=== PATIENT | male | born 1960 | race Caucasian/White ===

== ENCOUNTER 2020-07-21 08:01 | Outpatient (REF) | payer BC, SELFPAY ==
[2020-07-21 09:40] LABS: MANUAL DIFF FLAG NO
[2020-07-21 09:45] LABS: Basophils Percent Auto 0.8 % (0-2); Eosinophils Absolute Auto 0.1 X10*3/uL (0.0-0.4); Eosinophils Percent Auto 2.3 % (0-4); Hemoglobin 15.6 g/dl (14.0-18.0); Imm Gran Abs Auto 0.01 X10*3/uL (0.00-0.03); Imm Gran Pct Auto 0.3 % (0.0-0.4); Lymphocytes Absolute Auto 1.5 X10*3/uL (1.2-4.9); Lymphocytes Percent Auto 36.7 % (20-40); Mean Corpuscular HGB Conc 34.7 g/dl (31.0-36.0); Mean Corpuscular Hemoglobin 31.1 pg (27.0-33.0); Mean Corpuscular Volume 89.8 fL (80-98); Mean Platelet Volume 9.5 fL (9.4-12.4); Monocytes Absolute Auto 0.3 X10*3/uL (0.1-1.2); Monocytes Percent Auto 8.3 % (2-11); Neutrophils Absolute Auto 2.1 X10*3/uL (2.0-8.3); Neutrophils Percent Auto 51.6 % (45-73); Platelet Count 193 X10*3/uL (160-400); Red Blood Count 5.01 X10*6/uL (4.60-5.80)
[2020-07-21 10:06] LABS: Glucose Urine UA NEG (NEG); Leukocyte Esterase Urine NEG (NEG); Nitrite Urine NEG (NEG); Specific Gravity - Urine 1.025 (1.005-1.025); Urine Blood 1+ (NEG); Urine Ketones NEG (NEG); Urine Protein NEG (NEG-TRACE)
[2020-07-21 10:07] LABS: Appearance Urine CLEAR; Color Urine YELLOW
[2020-07-21 10:13] LABS: RBC Urine 0-2 /HPF (0); WBC Urine 0 /HPF (0-4)
[2020-07-21 10:21] LABS: Alanine Aminotransferase 17 U/L (0-40); Albumin Level 4.3 g/dL (3.5-5.0); Alkaline Phosphatase 59 U/L (39-117); Anion Gap 12 (12-20); Aspartate Amino Transferase 16 U/L (5-37); Bilirubin Total 1.7 mg/dL (0.0-1.0); Blood Urea Nitrogen 16 mg/dL (9-16); Calcium 8.7 mg/dL (8.4-10.2); Carbon Dioxide 28 mmol/L (22-29); Chloride 104 mmol/L (96-108); Cholesterol 197 mg/dL; Estimated Glomerular Filt Rate > 60; Glucose Random 95 mg/dL (60-115); HDL Cholesterol 60 mg/dL; LDL Cholesterol Calculated 121 mg/dl; Potassium 4.2 mmol/l (3.3-5.1); Sodium 140 mmol/L (135-145); Total Protein 6.8 g/dL (6.5-8.0); Triglycerides 84 mg/dL
[2020-07-21 10:45] LABS: Thyroid Stimulating Hormone 1.76 mIU/mL (0.32-4.0)
[2020-07-21 10:49] LABS: Folate 18.6 ng/mL (> or = 4.0); Vitamin B12 830 pg/mL (200-900)
== END 2020-07-21 08:02 | disposition home or self-care (01) ==
LOC: HO.LAB 08:01
PROVIDERS: PCP Internal Medicine; Visit Provider Internal Medicine
DX: R73.02 Impaired glucose tolerance (oral) (principal); E78.00 Pure hypercholesterolemia, unspecified; E80.6 Other disorders of bilirubin metabolism
CPT/HCPCS: 36415; 80053; 80061; 81001; 82607; 82746; 84443; 85025

== ENCOUNTER 2020-10-19 06:59 | Outpatient (REF) | payer BC, SELFPAY ==
[2020-10-19 07:27] LABS: Glucose Urine UA NEG (NEG); Leukocyte Esterase Urine NEG (NEG); Nitrite Urine NEG (NEG); Specific Gravity - Urine 1.025 (1.005-1.025); Urine Blood NEG (NEG); Urine Ketones NEG (NEG); Urine Protein NEG (NEG-TRACE)
[2020-10-19 07:36] LABS: Appearance Urine CLEAR; Color Urine YELLOW
[2020-10-19 07:41] LABS: RBC Urine 0 /HPF (0); WBC Urine 0 /HPF (0-4)
== END 2020-10-19 07:00 | disposition home or self-care (01) ==
LOC: HO.LAB 06:59
PROVIDERS: Visit Provider Internal Medicine
DX: R73.02 Impaired glucose tolerance (oral) (principal); R82.90 Unspecified abnormal findings in urine
CPT/HCPCS: 81001

== ENCOUNTER 2020-11-22 07:29 | Day surgery (SDC) | payer BC, SELFPAY ==
[2020-11-16 14:35] VITALS: BMI 22.4
--- NOTE | 2020-11-20 14:55 | HO.ANESPROP2 ---
Documented by User: Kayy Schmidt 11/20/20 14:56 HPI - Anesthesia Eval Consult details Narrative: 60yo M for Colonoscopy PMFSH Active Problems Active Problems: All Active Problems (Updated 11/16/20 @ 14:31 by Estefania Edwards) Annual physical exam (Acute) Colonoscopy refused (Acute) Positive colorectal cancer screening using Cologuard test (Acute) Foul smelling urine (Acute) Lateral epicondylitis of right elbow (Acute) Impaired glucose tolerance (Acute) Hyperbilirubinemia (Acute) Anxiety (Acute) Past Medical History Medical History Anxiety Arthritis Heartburn History of palpitations Hyperbilirubinemia Impaired glucose tolerance Lateral epicondylitis of right elbow Rotator cuff tear arthropathy of right shoulder Family History Family History Father Hypertension Mother Stroke TIA (transient ischemic attack) Paternal Grandmother Stomach cancer Surgical History Surgical History History of removal of cyst History of tonsillectomy Hx of colonoscopy Social History Social History Alcohol intake: current Alcohol intake frequency: a few times a week Alcohol type: beer Smoking Status: Never smoker Use of substances other than those prescribed or required for medical reasons: No Have you been hit, kicked, punched, or otherwise hurt by someone within the past year? If so, by whom?: No Advance Directives: No Advance Directives Information Provided: No Advance Directives on File: No Meds Allergies Allergy/AdvReac Type Severity Reaction Status Date / Time Cortisone Allergy Unknown Swelling Verified 11/16/20 14:28 cyclobenzaprine Allergy Unknown unknown Verified 11/16/20 14:28 [From Flexeril] Home Medications Medication Instructions Recorded Confirmed Last Taken Type diphenhydramine HCl 25 mg tablet 25 mg PO BEDTIME PRN 07/10/20 11/16/20 Unknown History ibuprofen 200 mg tablet 200 mg PO Q6H PRN 07/10/20 07/10/20 Unknown History multivitamin 1 tab PO DAILY 07/10/20 07/10/20 Unknown History melatonin 5 - 10 mg PO BEDTIME 11/16/20 11/16/20 Unknown History Exam Exam Date and Time: November 20, 2020 1455 Height,Weight and Vital Signs: Height 6 ft 1 in Weight 77.111 kg Assessment and Plan Assessment Anesthesia Assessment: Chart Reviewed Documented by User: Ni Anthony 11/22/20 08:18 [facility] Past Medical History Medical History Anxiety Arthritis Heartburn History of palpitations Hyperbilirubinemia Impaired glucose tolerance Lateral epicondylitis of right elbow Rotator cuff tear arthropathy of right shoulder Family History Family History Father Hypertension Mother Stroke TIA (transient ischemic attack) Paternal Grandmother Stomach cancer Family history of problems with anesthesia: No Surgical History Surgical History History of removal of cyst History of tonsillectomy Hx of colonoscopy History of Problems with Anesthesia: No Social History Social History Alcohol intake: current Alcohol intake frequency: a few times a week Alcohol type: beer Smoking Status: Never smoker Use of substances other than those prescribed or required for medical reasons: No Have you been hit, kicked, punched, or otherwise hurt by someone within the past year? If so, by whom?: No Advance Directives: No Advance Directives Information Provided: No Advance Directives on File: No Meds Allergies Allergy/AdvReac Type Severity Reaction Status Date / Time Cortisone Allergy Unknown Swelling Verified 11/16/20 14:28 cyclobenzaprine Allergy Unknown unknown Verified 11/16/20 14:28 [From Flexeril] Home Medications Medication Instructions Recorded Confirmed Last Taken Type diphenhydramine HCl 25 mg tablet 25 mg PO BEDTIME PRN 07/10/20 11/16/20 Unknown History ibuprofen 200 mg tablet 200 mg PO Q6H PRN 07/10/20 07/10/20 Unknown History multivitamin 1 tab PO DAILY 07/10/20 07/10/20 Unknown History melatonin 5 - 10 mg PO BEDTIME 11/16/20 11/16/20 Unknown History Exam Height,Weight and Vital Signs: Vital Signs Temp Pulse Resp BP Pulse Ox 11/22/20 07:51 98.2 F 98 18 122/87 98 Airway Mallampati Class: II TM Dist: >3cm Neck ROM: Full Heart: RRR Lungs: CTAB Assessment and Plan Assessment Anesthesia Assessment: Anesthesia Plan Discussed and Chart Reviewed Final Anesthetic Review NPO: Yes ASA Class: II Final Preanesthetic Review: No Changes in Pt Med Stat, Meds/Allgs Chart Reviewed, Consent Obtained/Reviewed and Anes Risks/Benef Reviewed Patient Risk: Low Procedure Risk: Low Assessment/Block/Sedation in SS: Assess/Block/Sedation-SS Anesthetic Plan Anesthetic Plan: MAC: Disposition: Standard PACU
[2020-11-22 07:51] VITALS: BP 122/87; PULSE 98; RESP 18; TEMP 36.8; O2SAT 98
[2020-11-22] MEDS: Lactated Ringers 1,000 ML 100 ML IVCONT (08:18)
[2020-11-22 09:45] VITALS: BP 92/58; PULSE 87; RESP 12; TEMP 36.3; O2SAT 95
--- NOTE | 2020-11-22 09:46 | PM.OP ---
Brief Operative Note Date of Service: 11/22/20 Pre-op diagnosis: + Cologuard Post-op diagnosis: other (Colon polyps, Int/Ext Hemorrhoids, Diverticulosis) Procedure: Colonoscopy to the cecum and TI with Snare polypectomy, and biopsy and removal of polyps Surgeon: Salas Frederick Anesthesia: MAC Estimated blood loss (mL): 4.0 Pathology: other (A. Ascending colon polyps B. Proximal transverse colon polyp) Condition: stable Disposition: PACU
[2020-11-22 10:00] VITALS: BP 119/77; PULSE 71; RESP 16; TEMP 36.3; O2SAT 99
--- NOTE | 2020-11-22 10:25 | OP_ITS ---
SURGEON: Salas Frederick MD INDICATIONS: The patient presents for evaluation of a positive Cologuard test. Full consent has been obtained from him for this, including risks of bleeding and perforation. PREOPERATIVE DIAGNOSIS: Positive Cologuard test. POSTOPERATIVE DIAGNOSIS: PROCEDURE PERFORMED: ESTIMATED BLOOD LOSS: COMPLICATIONS: ANESTHESIA: Monitored anesthesia care. ASSISTANTS: SPECIMENS: POSTOPERATIVE DIAGNOSES: Positive Cologuard test, small colon polyps, diverticulosis and internal hemorrhoids. DESCRIPTION OF PROCEDURE: The patient was placed in the left lateral decubitus position. The digital rectal exam revealed some small external hemorrhoids. The Olympus video pediatric colonoscope was entered into the rectum and advanced easily to the cecum. Once in the cecum, I did identify normal-appearing cecal pouch with appendiceal orifice and a normal-appearing ileocecal valve. The terminal ileum was cannulated and appeared normal. The scope was withdrawn back in the colon. The entire cecum and ileocecal valve appeared normal. The scope was slowly withdrawn assessing all mucosal surfaces carefully. Preparation was excellent. In the ascending colon, were 2 flat approximately 3 or 4 mm probable adenomatous polyps, which were both biopsied and completely removed with cold biopsy forceps. In the proximal transverse colon, was a flat, but raised approximately 6 to 8 mm polyp, which was snared and recovered by suction. The polypectomy site appeared clean, without any sign of residual polyp nor bleeding. I did not visualize any other polyps, colitis, nor angiodysplasia. There was a mild amount of sigmoid diverticulosis. In the rectum, scope was retroflexed visualizing small internal hemorrhoids, but no other pathology. The rectal mucosa appeared normal. The scope was straightened out and withdrawn from the patient. He tolerated the procedure well and was returned to the recovery area in stable condition. IMPRESSION: 1. Small colon polyps, status post snare polypectomy, and biopsy and removal. 2. Diverticulosis. 3. Internal and external hemorrhoids. PLAN: The results of biopsy will be checked. If they are adenomas, I would recommend a followup colonoscopy in 5 years. If they are all happened to be hyperplastic, I would recommend a followup colonoscopy in 10 years. He was advised not to use any aspirin and NSAIDs for 1 week. This has been discussed with his . PROCEDURES PERFORMED: Colonoscopy to the cecum and terminal ileum with biopsy and removal of polyps, and snare polypectomy. MD RIK Mancini/JEAN MARIE / [id number]
== END 2020-11-22 10:33 | disposition home or self-care (01) ==
PROVIDERS: PCP Internal Medicine; Visit Provider Internal Medicine
PROC: 0DJD8ZZ Inspection of Lower Intestinal Tract, Via Natural or Artificial Opening Endoscopic (ICD-10-PCS; CPT 45378; principal; 2020-11-22 08:30)
DX: R19.5 Other fecal abnormalities (principal); D12.2 Benign neoplasm of ascending colon; D12.3 Benign neoplasm of transverse colon; K57.30 Diverticulosis of large intestine without perforation or abscess without bleeding; K64.8 Other hemorrhoids; K64.4 Residual hemorrhoidal skin tags
CPT/HCPCS: 45385; 45380; 88305

== ENCOUNTER 2021-08-02 08:15 | Outpatient (REF) | payer BC, SELFPAY ==
[2021-08-02 09:25] LABS: Basophils Percent Auto 0.5 % (0-2); Eosinophils Absolute Auto 0.1 X10*3/uL (0.0-0.4); Eosinophils Percent Auto 1.1 % (0-4); Hematocrit 45.4 % (42.0-52.0); Hemoglobin 15.5 g/dl (14.0-18.0); Lymphocytes Absolute Auto 1.4 X10*3/uL (1.2-4.9); Lymphocytes Percent Auto 31.6 % (20-40); MANUAL DIFF FLAG NO; Mean Corpuscular HGB Conc 34.1 g/dl (31.0-36.0); Mean Corpuscular Hemoglobin 30.5 pg (27.0-33.0); Mean Corpuscular Volume 89.4 fL (80.0-98.0); Mean Platelet Volume 9.4 fL (9.4-12.4); Monocytes Absolute Auto 0.4 X10*3/uL (0.1-1.2); Neutrophils Absolute Auto 2.6 x10*3/uL (2.0-8.3); Neutrophils Percent Auto 58.8 % (45-73); Platelet Count 167 X10*3/uL (160-400); Red Blood Count 5.08 X10*6/uL (4.60-5.80); Red Cell Distribution Width 12.1 % (11.0-16.0); White Blood Count 4.4 X10*3/uL (4.8-10.8)
[2021-08-02 10:09] LABS: Alanine Aminotransferase 18 U/L (0-40); Albumin Level 4.2 g/dL (3.5-5.0); Alkaline Phosphatase 61 U/L (39-117); Anion Gap 8 (12-20); Aspartate Amino Transferase 16 U/L (5-37); Bilirubin Total 1.8 mg/dL (0.0-1.0); Blood Urea Nitrogen 15 mg/dL (9-16); Calcium 9.4 mg/dL (8.4-10.2); Carbon Dioxide 31 mmol/L (22-29); Chloride 102 mmol/L (96-108); Cholesterol 194 mg/dL; Estimated Glomerular Filt Rate > 60; Glucose Random 100 mg/dL (60-115); HDL Cholesterol 59 mg/dL; LDL Cholesterol Calculated 122 mg/dl; Potassium 4.6 mmol/L (3.3-5.1); Sodium 136 mmol/L (135-145); Total Protein 6.8 g/dL (6.5-8.0); Triglycerides 69 mg/dL
[2021-08-02 10:17] LABS: Free T4 (Free Thyroxine) 0.94 ng/dL (0.71-1.85); Prostate Specific Antigen Scr 0.29 ng/mL (<0.05-4.0); Thyroid Stimulating Hormone 1.19 uIU/mL (0.32-4.0)
[2021-08-02 10:54] LABS: Folate 18.9 ng/mL (> or = 4.0); Vitamin B12 879 pg/mL (200-900)
== END 2021-08-02 08:16 | disposition home or self-care (01) ==
LOC: HO.LAB 08:15
PROVIDERS: PCP Internal Medicine; Visit Provider Internal Medicine
DX: Z12.5 Encounter for screening for malignant neoplasm of prostate (principal); D12.6 Benign neoplasm of colon, unspecified; E78.00 Pure hypercholesterolemia, unspecified
CPT/HCPCS: 36415; 80053; 80061; 82607; 82746; 84153; 84439; 84443; 85025

== ENCOUNTER 2022-01-19 07:24 | Outpatient (REF) | payer BC, SELFPAY ==
[2022-01-19 07:38] LABS: MANUAL DIFF FLAG NO
[2022-01-19 07:41] LABS: Basophils Percent Auto 0.6 % (0-2); Eosinophils Absolute Auto 0.1 X10*3/uL (0.0-0.4); Eosinophils Percent Auto 1.7 % (0-4); Hemoglobin 15.3 g/dl (14.0-18.0); Imm Gran Abs Auto 0.01 X10*3/uL (0.00-0.03); Imm Gran Pct Auto 0.2 % (0.0-0.4); Lymphocytes Absolute Auto 1.7 X10*3/uL (1.2-4.9); Lymphocytes Percent Auto 35.1 % (20-40); Mean Corpuscular HGB Conc 34.8 g/dl (31.0-36.0); Mean Corpuscular Hemoglobin 30.3 pg (27.0-33.0); Mean Corpuscular Volume 87.1 fL (80.0-98.0); Mean Platelet Volume 8.9 fL (9.4-12.4); Monocytes Absolute Auto 0.4 X10*3/uL (0.1-1.2); Monocytes Percent Auto 8.9 % (2-11); Neutrophils Absolute Auto 2.5 x10*3/uL (2.0-8.3); Neutrophils Percent Auto 53.5 % (45-73); Platelet Count 164 X10*3/uL (160-400); Red Blood Count 5.05 X10*6/uL (4.60-5.80); White Blood Count 4.7 X10*3/uL (4.8-10.8)
[2022-01-19 08:34] LABS: Alanine Aminotransferase 23 U/L (0-40); Albumin Level 4.2 g/dL (3.5-5.0); Alkaline Phosphatase 67 U/L (39-117); Anion Gap 12 (12-20); Aspartate Amino Transferase 18 U/L (5-37); Bilirubin Total 1.8 mg/dL (0.0-1.0); Blood Urea Nitrogen 16 mg/dL (9-16); Calcium 9.4 mg/dL (8.4-10.2); Carbon Dioxide 28 mmol/L (22-29); Chloride 105 mmol/L (96-108); Estimated Glomerular Filt Rate > 60; Glucose Random 99 mg/dL (60-115); Potassium 4.3 mmol/L (3.3-5.1); Sodium 141 mmol/L (135-145); Total Protein 6.9 g/dL (6.5-8.0)
[2022-01-19 08:55] LABS: TSH reflex Free T4 2.63 uIU/mL (0.32-4.0); Vitamin D 25-OH Total 28.9 ng/mL (>30)
[2022-01-21 09:59] LABS: Folate 19.9 ng/mL (> or = 4.0); Vitamin B12 979 pg/mL (200-900)
== END 2022-01-19 07:25 | disposition home or self-care (01) ==
LOC: HO.LAB 07:24
PROVIDERS: PCP Internal Medicine; Visit Provider Nurse Practitioner Family
DX: R42 Dizziness and giddiness (principal)
CPT/HCPCS: 36415; 80053; 82306; 82607; 82746; 84443; 85025

== ENCOUNTER 2022-05-16 09:08 | Outpatient (REF) | payer BC, SELFPAY ==
[2022-05-16 09:24] LABS: MANUAL DIFF FLAG NO
[2022-05-16 09:34] LABS: Basophils Percent Auto 0.6 % (0-2); Eosinophils Absolute Auto 0.1 X10*3/uL (0.0-0.4); Eosinophils Percent Auto 1.2 % (0-4); Hematocrit 44.9 % (42.0-52.0); Hemoglobin 15.7 g/dl (14.0-18.0); Imm Gran Abs Auto 0.01 X10*3/uL (0.00-0.03); Imm Gran Pct Auto 0.2 % (0.0-0.4); Lymphocytes Absolute Auto 1.4 X10*3/uL (1.2-4.9); Lymphocytes Percent Auto 27.6 % (20-40); Mean Corpuscular Hemoglobin 30.5 pg (27.0-33.0); Mean Corpuscular Volume 87.4 fL (80.0-98.0); Monocytes Absolute Auto 0.4 X10*3/uL (0.1-1.2); Monocytes Percent Auto 8.1 % (2-11); Neutrophils Absolute Auto 3.2 x10*3/uL (2.0-8.3); Neutrophils Percent Auto 62.3 % (45-73); Platelet Count 180 X10*3/uL (160-400); Red Blood Count 5.14 X10*6/uL (4.60-5.80); White Blood Count 5.1 X10*3/uL (4.8-10.8)
[2022-05-16 09:43] LABS: Estimated Average Glucose 94 mg/dL; Hemoglobin A1c % 4.9 %
[2022-05-16 09:54] LABS: Alanine Aminotransferase 23 U/L (0-40); Albumin Level 4.3 g/dL (3.5-5.0); Alkaline Phosphatase 68 U/L (39-117); Anion Gap 13 (12-20); Aspartate Amino Transferase 19 U/L (5-37); Bilirubin Total 1.6 mg/dL (0.0-1.0); Blood Urea Nitrogen 17 mg/dL (9-16); Calcium 9.1 mg/dL (8.4-10.2); Carbon Dioxide 27 mmol/L (22-29); Chloride 103 mmol/L (96-108); Cholesterol 225 mg/dL; Estimated Glomerular Filt Rate > 60; Glucose Random 98 mg/dL (60-115); HDL Cholesterol 60 mg/dL; LDL Cholesterol Calculated 153 mg/dl; Potassium 4.1 mmol/L (3.3-5.1); Sodium 139 mmol/L (135-145); Total Protein 7.2 g/dL (6.5-8.0); Triglycerides 60 mg/dL
[2022-05-16 10:19] LABS: Free T4 (Free Thyroxine) 1.07 ng/dL (0.71-1.85); Prostate Specific Antigen Scr 0.28 ng/mL (<0.05-4.0); Thyroid Stimulating Hormone 1.82 uIU/mL (0.32-4.0)
[2022-05-16 10:23] LABS: Vitamin D 25-OH Total 40.2 ng/mL (>30)
[2022-05-16 11:20] LABS: Folate > 20.0 ng/mL (> or = 4.0); Vitamin B12 853 pg/mL (200-900)
== END 2022-05-16 09:09 | disposition home or self-care (01) ==
LOC: HO.LAB 09:08
PROVIDERS: Nurse Practitioner Family; PCP Internal Medicine; Visit Provider Internal Medicine
DX: Z12.5 Encounter for screening for malignant neoplasm of prostate (principal); R73.02 Impaired glucose tolerance (oral); E78.00 Pure hypercholesterolemia, unspecified; R79.89 Other specified abnormal findings of blood chemistry
CPT/HCPCS: 36415; 80053; 80061; 82306; 82607; 82746; 83036; 84153; 84439; 84443; 85025

== ENCOUNTER → 2023-02-03 08:24 | Outpatient (BNVA) | payer BC, SELFPAY | PROVIDERS: PCP Internal Medicine; Visit Provider Nurse Practitioner Family ==

== ENCOUNTER 2023-02-18 10:17 | Outpatient (REF) | payer BC, SELFPAY ==
--- NOTE | ~2023-02-18 | US_ITS ---
EXAMINATION: US EXTRACRANIAL CAROTID DUPLEX, BILATERAL CLINICAL INFORMATION: Dizziness. COMPARISON: 07/09/2016. TECHNIQUE: Real-time ultrasound and Doppler techniques (integrating B-mode 2-D vascular images, Doppler spectral analysis and color-flow Doppler imaging) were utilized to interrogate the extracranial carotid arteries, the vertebral arteries and proximal subclavian arteries bilaterally. The degree of stenosis is determined by criteria similar to NASCET. FINDINGS: Right Side: 1. There is no atherosclerotic plaque seen in the bifurcation/proximal ICA region. 2. The common carotid artery PSV proximally is 145 cm/s and distally 88 cm/s. 3. The proximal internal carotid artery velocities are 147 cm/s systolic and 36 cm/s diastolic. 4. The proximal external carotid artery PSV is 116 cm/s. 5. The vertebral artery shows antegrade flow. 6. The subclavian artery waveforms are normal. Left Side: 1. There is no atherosclerotic plaque seen in the bifurcation/proximal ICA region. 2. The common carotid artery PSV proximally is 129 cm/s and distally 97 cm/s. 3. The proximal internal carotid artery velocities are 80 cm/s systolic and 28 cm/s diastolic. 4. The proximal external carotid artery PSV is 99 cm/s. 5. The vertebral artery shows antegrade flow. 6. The subclavian artery waveforms are normal. US/US carotid duplex BI IMPRESSION: 1. RIGHT: Persistently elevated velocity in the proximal ICA without demonstrable plaque. This could possibly relate to an underlying web such as an fibromuscular dysplasia. No beading seen on grayscale imaging. Consider CTA of the neck. 2. LEFT: Normal left internal carotid artery without atherosclerotic plaque or hemodynamically significant stenosis. 3. There is no change in the category severity of disease when compared to the previous study dated 07/09/2016.
== END 2023-02-18 10:18 | disposition home or self-care (01) ==
LOC: HO.US 10:17
PROVIDERS: PCP Internal Medicine; Visit Provider Nurse Practitioner Family
DX: R42 Dizziness and giddiness (principal); E78.00 Pure hypercholesterolemia, unspecified; H53.2 Diplopia
CPT/HCPCS: 93880

== ENCOUNTER 2023-03-11 09:02 | Outpatient (REF) | payer BC, SELFPAY ==
--- NOTE | ~2023-03-11 | MR_ITS ---
EXAMINATION: MR BRAIN WITHOUT AND WITH CONTRAST CLINICAL INFORMATION: Dizziness. COMPARISON: Head CT dated 07/09/2016. TECHNIQUE: Multiplanar, multisequential imaging was obtained without and with intravenous contrast. Intravenous contrast: Gadavist 8 mL. FINDINGS: There is diffuse linear pachymeningeal enhancement along the cerebral convexities, in the interhemispheric fissure, and in the posterior fossa, also extending into the internal auditory canals bilaterally. No subdural collections are identified. The cerebellar tonsils are normal in position. No diffusion abnormality is seen. The ventricles are normal in size. No mass effect or midline shift is evident. No extra-axial fluid collections are noted. The brainstem and cerebellum are normal. On postcontrast imaging, there is no abnormal parenchymal enhancement. The gradient refocused acquisition is normal. The VII and VIII cranial nerve complexes are normal in course and caliber. No signal abnormality is visualized within the inner ear structures on the precontrast axial T1-weighted sequence. Fluid signal is preserved within the cochlea, semicircular canals, and vestibule on the high-resolution axial FIESTA sequence. No cerebellopontine angle lesion is noted. There is no abnormal labyrinthine or intracanalicular enhancement on postcontrast imaging. The craniovertebral junction, marrow signal, and midline structures are normal. The visualized portions of the major intracranial flow-voids at the level of the jena of Thomason are preserved. The dural venous sinus flow-voids are maintained. The mastoid air cells and paranasal sinuses are well aerated. MR/MR head/brain wo/w con IMPRESSION: Diffuse pachymeningeal enhancement throughout the supratentorial and infratentorial compartments without nodularity. No subdural collections or cerebellar tonsillar ectopia. Findings are of indeterminate etiology; however, idiopathic intracranial hypotension can have this type of imaging appearance. Query for any history of positional headaches. Otherwise, no retrocochlear pathology.
[2023-03-11 10:33] LABS: Anion Gap 13 (12-20); Blood Urea Nitrogen 14 mg/dL (9-16); Calcium 9.5 mg/dL (8.4-10.2); Carbon Dioxide 26 mmol/L (22-29); Chloride 107 mmol/L (96-108); Estimated Glomerular Filt Rate > 60; Glucose Random 100 mg/dL (60-115); Potassium 4.1 mmol/L (3.3-5.1); Sodium 142 mmol/L (135-145)
== END 2023-03-11 09:03 | disposition home or self-care (01) ==
LOC: HO.MRI 09:02
PROVIDERS: PCP Internal Medicine; Visit Provider Nurse Practitioner Family
DX: H53.2 Diplopia (principal); E78.00 Pure hypercholesterolemia, unspecified; R42 Dizziness and giddiness
CPT/HCPCS: 36415; 70553; 80048; A9585

== ENCOUNTER 2023-03-24 07:45 | Outpatient (REF) | payer BC, SELFPAY ==
--- NOTE | ~2023-03-24 | CT_ITS ---
EXAMINATION: CT ANGIOGRAM NECK WITH CONTRAST CLINICAL INFORMATION: Dizziness and giddiness. Persistently elevated velocities in the proximal ICA. COMPARISON: Carotid Doppler ultrasound February 18, 2023. TECHNIQUE: Test bolus sequences followed by intravenous administration 70 mL of Omnipaque 350. Helical imaging was performed in the axial plane from the thoracic inlet to the skull base. The data was processed at the mining engineering technologist workstation for generation of MIP sequences. Angled MIPs and volume rendered reformatted images were also generated at an offline 3D workstation. Stenoses are assessed in accordance with NASCET criteria unless otherwise indicated. This CT examination was performed using dose optimization techniques as appropriate, variously including the following: *Automated exposure control *Adjustment of mA and/or kV according to patient size (this includes techniques or standardized protocols for targeted exams where dose is matched to indication/reason for exam; i.e. extremities or head) *Use of iterative reconstruction technique DLP: 321 mGy-cm FINDINGS: NECK CTA: There is a normal aortic arch with no significant stenosis of the great vessel origins. The common and internal carotid arteries are normal in course and caliber. Both vertebral arteries are widely patent throughout their extracranial cervical course. PARTIALLY IMAGED HEAD CTA: There is no large vessel occlusion. Intracranial arteries appear patent. There is no mass effect or midline shift. The dural venous sinuses appear grossly normal. NON-VASCULAR FINDINGS: Multilevel degenerative changes are noted in the spine. The upper lungs are clear. The cervical soft tissues are within normal limits. CT/CT angio neck IMPRESSION: No stenosis within the major neck arteries. No abnormality is seen involving the proximal right internal carotid artery. No large vessel occlusion or significant stenosis within the intracranial circulation.
== END 2023-03-24 07:46 | disposition home or self-care (01) ==
LOC: HO.CT 07:45
PROVIDERS: PCP Internal Medicine; Visit Provider Nurse Practitioner Family
DX: R42 Dizziness and giddiness (principal); E78.00 Pure hypercholesterolemia, unspecified
CPT/HCPCS: 70498; Q9967

== ENCOUNTER 2023-05-17 07:38 | Outpatient (REF) | payer BC, SELFPAY ==
[2023-05-17 07:53] LABS: MANUAL DIFF FLAG NO
[2023-05-17 08:05] LABS: Basophils Percent Auto 0.5 % (0-2); Eosinophils Absolute Auto 0.1 X10*3/uL (0.0-0.4); Eosinophils Percent Auto 2.5 % (0-4); Hematocrit 44.7 % (42.0-52.0); Hemoglobin 15.5 g/dl (14.0-18.0); Imm Gran Abs Auto 0.01 X10*3/uL (0.00-0.03); Imm Gran Pct Auto 0.2 % (0.0-0.4); Lymphocytes Absolute Auto 1.7 X10*3/uL (1.2-4.9); Lymphocytes Percent Auto 30.1 % (20-40); Mean Corpuscular HGB Conc 34.7 g/dl (31.0-36.0); Mean Corpuscular Hemoglobin 30.9 pg (27.0-33.0); Mean Corpuscular Volume 89.2 fL (80.0-98.0); Mean Platelet Volume 9.4 fL (9.4-12.4); Monocytes Absolute Auto 0.4 X10*3/uL (0.1-1.2); Monocytes Percent Auto 7.4 % (2-11); Neutrophils Absolute Auto 3.4 x10*3/uL (2.0-8.3); Neutrophils Percent Auto 59.3 % (45-73); Platelet Count 178 X10*3/uL (160-400); Red Blood Count 5.01 X10*6/uL (4.60-5.80); Red Cell Distribution Width 12.2 % (11.0-16.0); White Blood Count 5.7 X10*3/uL (4.8-10.8)
[2023-05-17 08:22] LABS: Estimated Average Glucose 91 mg/dL; Hemoglobin A1c % 4.8 % (<6.0)
[2023-05-17 08:52] LABS: Alanine Aminotransferase 15 U/L (0-40); Albumin Level 4.1 g/dL (3.5-5.0); Alkaline Phosphatase 70 U/L (39-117); Anion Gap 10 (12-20); Aspartate Amino Transferase 16 U/L (5-37); Bilirubin Total 0.9 mg/dL (0.0-1.0); Blood Urea Nitrogen 16 mg/dL (9-16); Calcium 9.1 mg/dL (8.4-10.2); Carbon Dioxide 28 mmol/L (22-29); Chloride 106 mmol/L (96-108); Cholesterol 192 mg/dL (<200); Estimated Glomerular Filt Rate > 60; Glucose Random 98 mg/dL (60-115); HDL Cholesterol 57 mg/dL (>40); LDL Cholesterol Calculated 124 mg/dL (<100); Potassium 4.2 mmol/L (3.3-5.1); Sodium 140 mmol/L (135-145); Triglycerides 57 mg/dL (<150)
[2023-05-17 09:14] LABS: Free T4 (Free Thyroxine) 0.93 ng/dL (0.71-1.85); Thyroid Stimulating Hormone 2.17 uIU/mL (0.32-4.0); Vitamin D 25-OH Total 43.6 ng/mL (>30)
[2023-05-17 09:19] LABS: Folate 16.8 ng/mL (> or = 4.0); Prostate Specific Antigen Scr 0.31 ng/mL (<0.05-4.0); Vitamin B12 779 pg/mL (200-900)
[2023-05-19 17:34] LABS: Lyme Abs Screen <0.90 index
== END 2023-05-17 07:39 | disposition home or self-care (01) ==
LOC: HO.LAB 07:38
PROVIDERS: PCP Internal Medicine; Visit Provider Internal Medicine
DX: Z12.5 Encounter for screening for malignant neoplasm of prostate (principal); R73.02 Impaired glucose tolerance (oral); E78.00 Pure hypercholesterolemia, unspecified; E55.9 Vitamin D deficiency, unspecified
CPT/HCPCS: 36415; 80053; 80061; 82306; 82607; 82746; 83036; 84153; 84439; 84443; 85025; 86617; 86618

== ENCOUNTER 2023-05-19 09:44 | Outpatient (AMB) | payer BC, SELFPAY ==
--- NOTE | 2023-05-19 10:06 | A.OFFVIS_ITS ---
Intake Vital Signs 05/19/23 10:07 Height 6 ft 1 in Weight 175 lb BMI 23.1 BP 112/88 Blood Pressure Location Rt brachial Position Sitting Pulse 71 Pulse Source Pulse Oximeter Pulse Oximetry (%) 96 Oxygen Delivery Method Room Air Intake Visit Reasons: 3m follow up Dizzines/guiddiness - Confirmed Intake Note: Patient presents for follow up dizziness. patient states Things have changed since the last time I was here, everything has improved. Allergies Cortisone Allergy (Unknown, Verified 05/19/23 10:16) Swelling cyclobenzaprine [From Flexeril] Allergy (Unknown, Verified 05/19/23 10:16) unknown Medication List - Last Reconciled 05/19/23 by Charline Carbajal, ZEESHAN ibuprofen 200 mg PO Q6H PRN loratadine (Claritin) 10 mg PO DAILY multivitamin 1 tab PO DAILY HPI HPI Comments History of Present Illness Details 62-yr-old male presents for f/u visit, accompanied by his . Pt denies any significant interval medical changes. Pt underwent bilataeral carotid duplex, which showed persistent elevated velocity in right proximal ICA. Pt then underwent f/u CTA neck, which was unremarkable. Pt underwent brain MRI w/wo, which revealed diffuse pachymeningeal enhancement throughout the supratentorial and infratentorial compartments without nodu larity. Upon review, pt was advised to increase caffeie intake, which he has done (now taking 4 scoops of coffee each am, which he is tolerating well). Since, he has not had any episodes of his head feeling empty . He may have an occasional brief orthostatic lightheadedness. Denies any positional headaches. 03/24/23, CT/CT angio neck IMPRESSION: No stenosis within the major neck arteries. No abnormality is seen involving the proximal right internal carotid artery. No large vessel occlusion or significant stenosis within the intracranial circulation. 03/11/23, MR/MR head/brain wo/w con IMPRESSION: Diffuse pachymeningeal enhancement throughout the supratentorial and infratentorial compartments without nodularity. No subdural collections or cerebellar tonsillar ectopia. Findings are of indeterminate etiology; however, idiopathic intracranial hypotension can have this type of imaging appearance. Query for any history of positional headaches. Otherwise, no retrocochlear pathology. 02/18/23, US/US carotid duplex BI IMPRESSION: 1. RIGHT: Persistently elevated velocity in the proximal ICA without demonstrable plaque. This could possibly relate to an underlying web such as an fibromuscular dysplasia. No beading seen on grayscale imaging. Consider CTA of the neck. ? 2. LEFT: Normal left internal carotid artery without atherosclerotic plaque or hemodynamically significant stenosis. ? 3. There is no change in the category severity of disease when compared to the previous study dated 07/09/2016. REPLACED BY [facility] Medical History Anxiety Arthritis Foul smelling urine Heartburn History of palpitations Hyperbilirubinemia Impaired glucose tolerance Lateral epicondylitis of right elbow Positive colorectal cancer screening using Cologuard test Rotator cuff tear arthropathy of right shoulder Surgical History History of removal of cyst History of tonsillectomy Hx of colonoscopy Family History Father Hypertension Mother Stroke TIA (transient ischemic attack) Paternal Grandmother Stomach cancer Social History Housing: House Alcohol intake: current Alcohol intake frequency: a few times a week Alcohol type: beer Patient Tobacco Use Status: Never used Tobacco e-Cigarette/Vaping Use: Never Used Second Hand Smoke Exposure: No Current occupational status: retired Cognitive needs: No Hearing needs: No Vision needs: Yes Review of Systems Const All systems reviewed & are unremarkable except as noted in HPI and below Physical Exam Vital Signs: Last Vital Signs Pulse 71 05/19/23 10:07 BP 112/88 05/19/23 10:07 Pulse Ox 96 05/19/23 10:07 Oxygen Delivery Method Room Air 05/19/23 10:07 BMI result Body Mass Index 23.1 Const General: cooperative and no acute distress Orientation/consciousness: patient oriented x3 HEENT Head: Yes normocephalic Resp Effort & Inspection: normal respiratory effort and able to speak in complete sentences Neuro General: patient oriented x3, gait normal and CN's II-XI intact bilaterally Cognition (Neuro): normal cognition Motor exam (neuro): 5/5 motor strength present throughout Psych Appearance: grossly normal Mental Status: mental status grossly normal Speech and movement: Normal speech and movement present Affect: normal affect Attitude: cooperative Thought process: Normal thought process present Thought content: Normal thought content present Insight: Good insight present (Psych) Judgement: Good judgement present (Psych) Assessment & Plan Assessment & Plan (1) Intracranial hypotension: Code(s): G96.810 - Intracranial hypotension, unspecified (2) Lightheadedness: Code(s): R42 - Dizziness and giddiness Plan Reviewed brain MRI report and images- findings c/w intracranial hypotension. Reviewed carotid US- increased right proximal ICA velocity, however f/u neck CTA was unremarkable. Pt is feeling significantly better w/ increased caffeine intake, which he is tolerating well. Will monitor. If s/s worsen, consider spine imaging for dural tear, empiric LP blood patch. Monitor diplopia. f/u in 3-4 months (may do tele) or sooner prn Coding Level of Care Code Est Pt Level 4 (19134) Diagnoses Intracranial hypotension G96.810 Lightheadedness R42
[2023-05-19 10:07] VITALS: BP 112/88; PULSE 71; O2SAT 96; BMI 23.1
== END 2023-05-19 11:00 | disposition home or self-care (01) ==
PROVIDERS: Visit Provider Nurse Practitioner Family
DX: G96.810 Intracranial hypotension, unspecified (principal); R42 Dizziness and giddiness
CPT/HCPCS: 99214

== ENCOUNTER → 2023-05-19 09:44 | Outpatient (BNVA) | payer BC, SELFPAY | PROVIDERS: Visit Provider Nurse Practitioner Family ==

== ENCOUNTER 2023-05-27 12:18 | Outpatient (AMB) | payer BC, SELFPAY ==
[2023-05-27 12:21] VITALS: BP 124/72; PULSE 70; O2SAT 98; BMI 22.7
--- NOTE | 2023-05-27 12:21 | A.OFFPC_ITS ---
Vital Signs 05/27/23 12:21 Height 6 ft 1 in Weight 172 lb BMI 22.7 BP 124/72 Blood Pressure Location Lt brachial Position Sitting Pulse 70 Pulse Source Pulse Oximeter Pulse Oximetry (%) 98 Oxygen Delivery Method Room Air Intake Visit Reasons: annual exam Allergies Cortisone Allergy (Unknown, Verified 05/27/23 12:21) Swelling cyclobenzaprine [From Flexeril] Allergy (Unknown, Verified 05/27/23 12:21) unknown Medication List - Last Reconciled 05/27/23 by Radha Bonner MD ibuprofen 200 mg PO Q6H PRN loratadine (Claritin) 10 mg PO DAILY multivitamin 1 tab PO DAILY Tobacco use date assessed: 05/27/23 Dental Screening Dental Screen Date: 05/27/23 Did you have a dental visit in the last 12 months?: Yes Did you have a dental problem in the last 6 months where you did not have access to dental care?: No Was dental information given to patient?: Patient has dentist HPI annual exam HPI Details 62-year-old male with a history of impaired glucose tolerance hypercholesterolemia last seen in April 2022. Patient is here for physical exam. Colonoscopy is up-to-date November 2020 impaired patient complains of feeling dizzy and was followed up by Neurology diagnosis of intracranial hypo tension and advise caffeine.feeling empty feeling 95 % better after increase caffeine. [facility] Medical History (Updated 05/27/23 @ 12:59 by Radha Bonner MD) Anxiety Arthritis Diplopia Foul smelling urine Heartburn History of palpitations Hyperbilirubinemia Impaired glucose tolerance Intermittent lightheadedness Lateral epicondylitis of right elbow Lightheadedness Palpitations Positive colorectal cancer screening using Cologuard test Rotator cuff tear arthropathy of right shoulder Tendinosis of right shoulder Vertigo Surgical History History of removal of cyst History of tonsillectomy Hx of colonoscopy Family History (Updated 05/27/23 @ 12:22 by Naomi Curtis CMA) Father Hypertension Mother Stroke TIA (transient ischemic attack) Paternal Grandmother Stomach cancer Social History (Updated 05/27/23 @ 12:39 by Radha Bonner MD) Housing: House Alcohol intake: current Alcohol intake frequency: a few times a week Alcohol type: beer Patient Tobacco Use Status: Never used Tobacco e-Cigarette/Vaping Use: Never Used Second Hand Smoke Exposure: No Current occupational status: retired Cognitive needs: No Hearing needs: No Vision needs: Yes Questionnaire PHQ-9 Over the last 2 weeks, how often have you been bothered by any of the following problems? 1. Little interest or pleasure in doing things: not at all 2. Feeling down, depressed, or hopeless: not at all 3. Trouble falling or staying asleep, or sleeping too much: not at all 4. Feeling tired or having little energy: not at all 5. Poor appetite or overeating: not at all 6. Feeling bad about yourself - or that you are a failure or have let yourself or your family down: not at all 7. Trouble concentrating on things, such as reading the newspaper or watching television: not at all 8. Moving or speaking so slowly that other people could have noticed. Or the opposite - being so fidgety or restless that you have been moving around a lot more than usual: not at all 9. Thoughts that you would be better off or of hurting yourself in some way: not at all Total score: 0 Depression Screening Interpretation: Negative Source: Developed by Drs. Salas Le, Sandie Blackburn, Genaro Cristobal and colleagues, with an educational victor m from [employer]. Thrive Questionnaire Date Thrive assessed: 05/27/23 I am a: Patient What is your living situation today?: I have a steady place to live Within the past 12 months, did the food you bought not last and you didn't have the money to get more?: Never true Within the past 12 months, did you worry whether your food would run out before you got money to buy more?: Never true Do you have trouble paying for medicines?: No Do you have trouble getting transportation to medical appointments?: No Do you have trouble paying your heating and electricity bill?: No Do you have trouble taking care of your child, family member or friend?: No Do you have trouble with day-to-day activities such as bathing, preparing meals, shopping, managing finances, etc.?: No Are you currently unemployed and looking for a job?: No Are you interested in more education?: No Currently or been in a relationship where the following occur: no concerns reported AUDIT C Alcohol Use Questionnaire (AUDIT-C) 1. How often do you have a drink containing alcohol?: 4 or more times a week 2. How many drinks containing alcohol do you have on a typical day when you are drinking?: 1 or 2 3. How often do you have six or more drinks on one occasion?: Never Total Score: 4 Score Reviewed/Action Taken: Yes NASRA-7 AMB Questionnaire NASRA-7 Date NASRA - 7 assessed: 05/27/23 Feeling nervous, anxious, or on edge: 0 = Not at all Not being able to stop or control worryin = Not at all Worrying too much about different things: 0 = Not at all Trouble relaxin = Not at all Being so restless that it is hard to sit still: 0 = Not at all Becoming easily annoyed or irritable: 0 = Not at all Feeling afraid as if something awful might happen: 0 = Not at all Total NASRA-7 score (0-4 normal; 5-9 mild; 10-14 moderate; 15-21 severe): 0 Source: Developed by Drs. Salas Le, Sandie Blackburn, Genaro Cristobal and colleagues, with an educational victor m from [employer]. Review of Systems Const Denies poor appetite and Denies weakness Eyes Denies no additional complaints ENT Reports Normal hearing present, Denies dizziness, Denies nasal congestion, Denies tinnitus and Denies sore throat Card Denies chest pain, Denies syncope, Denies rapid heart rate and Denies dyspnea Resp Denies cough and Denies dyspnea GI Denies change in stool character, Reports constipation, Denies diarrhea, Denies nausea and Denies vomiting Denies dysuria and Denies urinary frequency Neuro Reports Normal hearing present, Denies confusion, Denies dizziness, Denies syncope and Denies weakness Psych Denies confusion Physical exam (Primary Care) Vital Signs: Last Vital Signs Pulse 70 05/27/23 12:21 BP 124/72 05/27/23 12:21 Pulse Ox 98 05/27/23 12:21 Oxygen Delivery Method Room Air 05/27/23 12:21 BMI result Body Mass Index 22.7 Tobacco/Smoking Status: Tobacco use Status Tobacco use date assessed 05/27/23 05/27/23 12:22 Patient Tobacco Use Status Never used Tobacco 05/27/23 12:22 e-Cigarette/Vaping Use Never Used 05/27/23 12:22 PHQ-9: PHQ-9 Score PHQ-9: Total score 0 05/27/23 12:32 Depression Screening Interpretation: Negative Thrive Assessment: Date of Thrive Assessment Date Thrive assessed 05/27/23 05/27/23 12:22 Currently or been in a relationship where the following occur: no concerns reported Const General: No confusion Orientation/consciousness: No confusion HENMT Other: impacted cerumen R ear, L TM good Head: Yes normocephalic Ears: external ears normal Face and sinus: Yes normal facial exam Mouth: moist mucous membranes Throat: Yes tonsils normal Eyes Conjunctivae: conjunctivae normal Pupils: Equal, round and reactive pupils present and Pupil accommodation reflex normal Direct Ophthalmoscopy: normal light reflex Neck Neck: No lymphadenopathy Thyroid: Thyroid normal Chest Chest palpation & inspection: normal inspection of the chest Resp Effort & Inspection: normal respiratory effort and no audible wheezes Auscultation: clear to auscultation bilaterally, no crackles, no wheezes and lung sounds not diminished Cardio Rate: regular rate Rhythm: regular rhythm Peripheral pulses: radial pulses present and dorsalis pedis present GI Other: guaiac negative, prostate mild enlarged Palpation (GI): no masses Auscultation: normal bowel sounds and normoactive bowel sounds Skin General skin exam: no rashes or lesions noted Rashes: no rashes Neuro General: No confusion Cranial nerves: Yes Equal, round and reactive pupils present and Yes Normal hearing present Cognition (Neuro): normal cognition Gait exam (Neuro): Normal gait present Motor exam (neuro): 5/5 motor strength present throughout Deep tendon reflexes (DTR's): Right brachioradialis reflex intensity grade: 2+, Left brachioradialis reflex intensity grade: 2+, Right patellar reflex intensity grade: 2+ and Left patellar reflex intensity grade: 2+ Extrem General: No edema Immunizations tetanus-diphtheria toxoids-Td Performing Provider: Radha Bonner MD Administered by: Naomi Curtis CMA on 05/27/23 12:30 Dose Route Admin Location Lot Number Expiration Date NDC Histopathologist 0.5 mL IM Left Deltoid [id number] 01/26/24 [address]-7 [employer] VIS Given Date VIS Provided VIS Publication Date 05/27/23 Single Vaccine 21 Eligibility Eligibility Date Funding Source Not [facility] Eligible 05/27/23 State funds Assessment and Plan Assessment & Plan (1) Annual physical exam: Code(s): Z00.00 - Encounter for general adult medical examination without abnormal findings (2) Impaired glucose tolerance: Code(s): R73.02 - Impaired glucose tolerance (oral) Plan: Repeat blood work resolved (3) Intracranial hypotension: Code(s): G96.810 - Intracranial hypotension, unspecified Plan: Patient follows up with Neurology (4) Hypercholesterolemia: Code(s): E78.00 - Pure hypercholesterolemia, unspecified Plan: Avoid fried foods, chicken skin, eggs, butter margarine, pastries and meat. Be it pork or beef they have a lot of cholesterol repeat blood work normal (5) Impacted cerumen of right ear: Code(s): H61.21 - Impacted cerumen, right ear Plan: will use OTC Orders: Orders Td State Immunization Today Z23 - Encounter for immunization Coding Level of Care Code Est Pt Prev Care 40-64y(99382) Diagnoses Annual physical exam Z00.00 Impaired glucose tolerance R73.02 Intracranial hypotension G96.810 Hypercholesterolemia E78.00 Impacted cerumen of right ear H61.21
== END 2023-05-27 13:17 | disposition home or self-care (01) ==
PROVIDERS: PCP Internal Medicine; Visit Provider Internal Medicine
DX: Z00.00 Encounter for general adult medical examination without abnormal findings (principal); R73.02 Impaired glucose tolerance (oral); G96.810 Intracranial hypotension, unspecified; E78.00 Pure hypercholesterolemia, unspecified; H61.21 Impacted cerumen, right ear; Z23 Encounter for immunization
CPT/HCPCS: 90471; 90714; 99396

== ENCOUNTER 2023-12-02 09:29 | Outpatient (AMB) | payer BC, SELFPAY ==
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
== END 2023-12-02 11:48 | disposition home or self-care (01) ==
LOC: HO.HSMS 09:30
PROVIDERS: PCP Internal Medicine; Visit Provider Nurse Practitioner Family
DX: G96.810 Intracranial hypotension, unspecified (principal); R51.0 Headache with orthostatic component, not elsewhere classified; R29.898 Other symptoms and signs involving the musculoskeletal system
CPT/HCPCS: 99214

== ENCOUNTER → 2023-12-02 09:29 | Outpatient (BNVA) | payer BC, SELFPAY | PROVIDERS: PCP Internal Medicine; Visit Provider Nurse Practitioner Family ==

== ENCOUNTER 2023-12-30 11:07 | Outpatient (REF) | payer BC, SELFPAY ==
--- NOTE | ~2023-12-30 | MR_ITS ---
EXAMINATION: MR CERVICAL SPINE WITHOUT AND WITH CONTRAST CLINICAL INFORMATION: Intracranial hypertension, evaluate for epidural collection COMPARISON: None available TECHNIQUE: MRI of the cervical spine was obtained using routine sequences without and with contrast. A total of 8 mL Gadavist was administered intravenously. FINDINGS: Straightening of the normal cervical lordosis. No significant spondylolisthesis. Cervical vertebral body heights are maintained. Degenerative endplate edema and enhancement at C6-C7. The cervical spinal cord is normal in signal. No abnormal intramedullary enhancement. There is no epidural collection or mass. Multiple perineural root sleeve cysts in the upper thoracic spine are noted. C2-C3: Trace central disc protrusion. The spinal canal and neural foramen are not significantly narrowed. C3-C4: Shallow disc osteophyte complex indents the ventral thecal sac. Mild spinal canal stenosis. Uncovertebral arthropathy with mild to moderate narrowing of the neural foramen, greater on the right. C4-C5: Disc osteophyte complex and ligamentum flavum infolding with mild to moderate spinal canal stenosis. Uncovertebral and facet arthropathy with moderate right and mild left neural foraminal stenosis. C5-C6: Disc osteophyte complex with mild spinal canal stenosis. Uncovertebral and facet arthropathy with severe right and mild left neural foraminal stenosis. C6-C7: Eccentric left disc osteophyte complex without significant spinal canal stenosis. Mild narrowing of the left neural foramen. C7-T1: No significant spinal canal or neural foraminal stenosis. MR/MR cervical spine wo/w con IMPRESSION: No epidural fluid collection or abnormal enhancement is visualized. The cervical spinal cord is normal in signal intensity. Multilevel degenerative changes as described above. No high-grade spinal canal stenosis.
[2023-12-30] MEDS: gadobutroL 10 ML VIAL IVPUSH (11:53)
== END 2023-12-30 11:08 | disposition home or self-care (01) ==
LOC: HO.MRI 11:07
PROVIDERS: PCP Internal Medicine; Visit Provider Nurse Practitioner Family
DX: R51.0 Headache with orthostatic component, not elsewhere classified (principal); M50.21 Other cervical disc displacement, high cervical region; G96.810 Intracranial hypotension, unspecified; M48.02 Spinal stenosis, cervical region
CPT/HCPCS: 72156; A9585

== ENCOUNTER 2024-01-07 08:53 | Outpatient (REF) | payer BC, SELFPAY ==
--- NOTE | ~2024-01-07 | MR_ITS ---
EXAMINATION: MRI LUMBAR SPINE WITHOUT AND WITH CONTRAST; MRI THORACIC SPINE WITHOUT AND WITH CONTRAST CLINICAL INFORMATION: 63-year-old with possible intracranial hypotension. Evaluate for CSF epidural collection. COMPARISON: None available. TECHNIQUE: Multiplanar multisequence MR imaging of the lumbar spine and thoracic spine was performed prior to and following the intravenous administration of 8 mL of Gadavist. LUMBAR FINDINGS: Coronal Alignment: There is moderate lumbar levoscoliosis, convex to the left at L2-L3. Sagittal Alignment: There is 5 mm of grade 1 isthmic spondylolisthesis at L5-S1 with bilateral pars defects noted. Otherwise normal lumbar alignment. Lumbosacral Junction: Normal. There are 5 eqh-foi-mqlzrdc lumbar-type vertebral bodies. Vertebral Bodies: Vertebral body heights are well maintained. Disc Spaces and Endplates: Rbprvriz-ix-thbtdv disc space height loss at L5-S1 is noted with loss of T2-weighted signal from the intervertebral disc at this level, with mild paravertebral spondylosis. Remaining lumbar vertebral discs demonstrate normal height. Only minimal degrees of disc desiccation are noted throughout the remaining lumbar intervertebral discs. There is minor spondylosis at L3-L4 and L2-L3. Endplates appear grossly intact. Spinal Canal: There is a 2 cm Tarlov cyst in the sacral canal to the left of midline at the S2-S3 level. Bone Marrow: No suspicious marrow-replacing process or bone marrow edema and no abnormal bone marrow enhancement. There are scattered small foci of fatty marrow replacement at multiple levels.. Conus Medullaris: Terminates at L1-L2. Morphology and signal is normal. No abnormal enhancement. Intradural Nerve Roots: Within normal limits. No abnormal intradural enhancement. L5-S1: Unroofing of the posterior disc margin consistent with grade 1 isthmic spondylolisthesis, without canal stenosis. Bilateral pars defects are noted with bony productive changes on both sides of the pars defects and facet arthropathy bilaterally with [id number]-xv-gocjimvc craniocaudal neural foraminal narrowing, left more than right without definite exiting neural impingement. L4-L5: Mild disc bulging with a superimposed left central disc protrusion with mild flattening of the ventral dural sac asymmetric to the left. Minor facet joint arthropathy noted bilaterally without significant central canal stenosis. Mild narrowing of the left subarticular recess is noted without neural impingement. No significant neural foraminal stenosis. L3-L4: Concentric disc bulging is noted with mild flattening of the dural sac with minor bilateral facet joint arthrosis without significant canal or neural foraminal stenosis. L2-L3: Left-sided foraminal disc protrusion noted without neural impingement. Small right subarticular to foraminal disc protrusion without neural impingement. No significant facet arthrosis, canal or neural foraminal stenosis. L1-L2: Normal annular contour. No facet arthrosis, canal or neural foraminal stenosis. T12-L1: Normal annular contour. No facet arthrosis, canal or foraminal stenosis. Paravertebral and Included Extraspinal Soft Tissues: The paravertebral soft tissues are unremarkable. No paraspinal fluid collections are seen and there are no epidural fluid collections or abnormal leptomeningeal enhancement. Specifically, no findings are seen to suggest a CSF leak. MR/MR thoracic spine wo/w con IMPRESSION: 1. No findings are seen to suggest a CSF leak within the spinal canal. 2. Grade 1 isthmic spondylolisthesis at L5-S1 with bilateral pars defects noted and facet arthropathy with cncx-gj-brdnsdxa craniocaudal neural foraminal narrowing, left more than right, without neural impingement. 3. Discogenic degenerative changes at L5-S1, disc bulging and left central disc protrusion at L4-L5 with mild narrowing of the left subarticular recess without neural impingement. Disc bulging at L3-L4. Minor degrees of facet joint arthropathy at multiple levels. THORACIC FINDINGS: Alignment: Slight thoracic dextrocurvature noted, minimally convex to the right at T6-T7. There is ytdk-wp-wqmcbkdu kyphotic angulation centered at T3-T4. Otherwise, spinal alignment is unremarkable. Vertebral Bodies And Bone Marrow: Vertebral body heights are well maintained. Note is made of a 2.9 cm benign vertebral hemangioma within the T8 vertebral body. There is a 1.8 cm benign vertebral hemangioma in the T12 vertebral body. Otherwise, bone marrow signal intensity is unremarkable. No focally aggressive marrow-replacing process, bone marrow edema or bone marrow enhancement is identified. Disc Spaces And Endplates: There is mlto-jm-kmaimwag intervertebral disc space height loss at T3-T4, T4-T5 and T5-T6, with disc desiccation at these levels. There is disc desiccation between T5-T6 and T8-T9 inclusive as well and there are mild degrees of anterior marginal spondylosis asymmetric to the right between T4-T5 and T11-T12 inclusive. Endplates appear grossly intact. There is no abnormal intradiscal or endplate enhancement. Paraspinal Soft Tissues: The paravertebral soft tissues are unremarkable. There are no paravertebral soft tissue masses or fluid collections. Spinal Cord: The thoracic spinal cord is normal in morphology, caliber and signal intensity with no abnormal spinal cord or leptomeningeal enhancement. The conus is not included in the amfso-id-egec. No epidural fluid collections are identified. There are numerous perineural cysts in the neural foramina at multiple levels bilaterally, with the largest of these noted on the left at T1-T2 measuring 1.4 cm greatest dimension. Spinal Levels: No disc herniations are identified and there is no evidence for significant thoracic spinal canal stenosis. No cord compression is seen. There is no significant facet joint arthropathy or neural foraminal stenosis. IMPRESSION: 1. No evidence for epidural or paraspinal fluid collection to suggest a CSF leak. No abnormal leptomeningeal enhancement. 2. Mild thoracic kyphoscoliosis with multilevel DDD and spondylosis as detailed above. 3. Numerous prominent multilevel bilateral perineural cysts in the thoracic neural foramina as detailed above with no convincing evidence for dural ectasia.
--- NOTE | ~2024-01-07 | MR_ITS ---
EXAMINATION: MRI LUMBAR SPINE WITHOUT AND WITH CONTRAST; MRI THORACIC SPINE WITHOUT AND WITH CONTRAST CLINICAL INFORMATION: 63-year-old with possible intracranial hypotension. Evaluate for CSF epidural collection. COMPARISON: None available. TECHNIQUE: Multiplanar multisequence MR imaging of the lumbar spine and thoracic spine was performed prior to and following the intravenous administration of 8 mL of Gadavist. LUMBAR FINDINGS: Coronal Alignment: There is moderate lumbar levoscoliosis, convex to the left at L2-L3. Sagittal Alignment: There is 5 mm of grade 1 isthmic spondylolisthesis at L5-S1 with bilateral pars defects noted. Otherwise normal lumbar alignment. Lumbosacral Junction: Normal. There are 5 kgt-srr-fknwuqp lumbar-type vertebral bodies. Vertebral Bodies: Vertebral body heights are well maintained. Disc Spaces and Endplates: Anfzpfiu-hk-uhwhjz disc space height loss at L5-S1 is noted with loss of T2-weighted signal from the intervertebral disc at this level, with mild paravertebral spondylosis. Remaining lumbar vertebral discs demonstrate normal height. Only minimal degrees of disc desiccation are noted throughout the remaining lumbar intervertebral discs. There is minor spondylosis at L3-L4 and L2-L3. Endplates appear grossly intact. Spinal Canal: There is a 2 cm Tarlov cyst in the sacral canal to the left of midline at the S2-S3 level. Bone Marrow: No suspicious marrow-replacing process or bone marrow edema and no abnormal bone marrow enhancement. There are scattered small foci of fatty marrow replacement at multiple levels.. Conus Medullaris: Terminates at L1-L2. Morphology and signal is normal. No abnormal enhancement. Intradural Nerve Roots: Within normal limits. No abnormal intradural enhancement. L5-S1: Unroofing of the posterior disc margin consistent with grade 1 isthmic spondylolisthesis, without canal stenosis. Bilateral pars defects are noted with bony productive changes on both sides of the pars defects and facet arthropathy bilaterally with hvqt-ue-bglszfhs craniocaudal neural foraminal narrowing, left more than right without definite exiting neural impingement. L4-L5: Mild disc bulging with a superimposed left central disc protrusion with mild flattening of the ventral dural sac asymmetric to the left. Minor facet joint arthropathy noted bilaterally without significant central canal stenosis. Mild narrowing of the left subarticular recess is noted without neural impingement. No significant neural foraminal stenosis. L3-L4: Concentric disc bulging is noted with mild flattening of the dural sac with minor bilateral facet joint arthrosis without significant canal or neural foraminal stenosis. L2-L3: Left-sided foraminal disc protrusion noted without neural impingement. Small right subarticular to foraminal disc protrusion without neural impingement. No significant facet arthrosis, canal or neural foraminal stenosis. L1-L2: Normal annular contour. No facet arthrosis, canal or neural foraminal stenosis. T12-L1: Normal annular contour. No facet arthrosis, canal or foraminal stenosis. Paravertebral and Included Extraspinal Soft Tissues: The paravertebral soft tissues are unremarkable. No paraspinal fluid collections are seen and there are no epidural fluid collections or abnormal leptomeningeal enhancement. Specifically, no findings are seen to suggest a CSF leak. MR/MR lumbar spine wo/w con IMPRESSION: 1. No findings are seen to suggest a CSF leak within the spinal canal. 2. Grade 1 isthmic spondylolisthesis at L5-S1 with bilateral pars defects noted and facet arthropathy with hjld-ag-iedgsxiq craniocaudal neural foraminal narrowing, left more than right, without neural impingement. 3. Discogenic degenerative changes at L5-S1, disc bulging and left central disc protrusion at L4-L5 with mild narrowing of the left subarticular recess without neural impingement. Disc bulging at L3-L4. Minor degrees of facet joint arthropathy at multiple levels. THORACIC FINDINGS: Alignment: Slight thoracic dextrocurvature noted, minimally convex to the right at T6-T7. There is jlnf-gp-blvutkxn kyphotic angulation centered at T3-T4. Otherwise, spinal alignment is unremarkable. Vertebral Bodies And Bone Marrow: Vertebral body heights are well maintained. Note is made of a 2.9 cm benign vertebral hemangioma within the T8 vertebral body. There is a 1.8 cm benign vertebral hemangioma in the T12 vertebral body. Otherwise, bone marrow signal intensity is unremarkable. No focally aggressive marrow-replacing process, bone marrow edema or bone marrow enhancement is identified. Disc Spaces And Endplates: There is woqd-hh-fdlwtmdz intervertebral disc space height loss at T3-T4, T4-T5 and T5-T6, with disc desiccation at these levels. There is disc desiccation between T5-T6 and T8-T9 inclusive as well and there are mild degrees of anterior marginal spondylosis asymmetric to the right between T4-T5 and T11-T12 inclusive. Endplates appear grossly intact. There is no abnormal intradiscal or endplate enhancement. Paraspinal Soft Tissues: The paravertebral soft tissues are unremarkable. There are no paravertebral soft tissue masses or fluid collections. Spinal Cord: The thoracic spinal cord is normal in morphology, caliber and signal intensity with no abnormal spinal cord or leptomeningeal enhancement. The conus is not included in the kwaso-nf-xbmk. No epidural fluid collections are identified. There are numerous perineural cysts in the neural foramina at multiple levels bilaterally, with the largest of these noted on the left at T1-T2 measuring 1.4 cm greatest dimension. Spinal Levels: No disc herniations are identified and there is no evidence for significant thoracic spinal canal stenosis. No cord compression is seen. There is no significant facet joint arthropathy or neural foraminal stenosis. IMPRESSION: 1. No evidence for epidural or paraspinal fluid collection to suggest a CSF leak. No abnormal leptomeningeal enhancement. 2. Mild thoracic kyphoscoliosis with multilevel DDD and spondylosis as detailed above. 3. Numerous prominent multilevel bilateral perineural cysts in the thoracic neural foramina as detailed above with no convincing evidence for dural ectasia.
[2024-01-07] MEDS: gadobutroL 10 ML VIAL IVPUSH (10:44)
== END 2024-01-07 08:54 | disposition home or self-care (01) ==
LOC: HO.MRI 08:53
PROVIDERS: PCP Internal Medicine; Visit Provider Nurse Practitioner Family
DX: G96.810 Intracranial hypotension, unspecified (principal); R51.0 Headache with orthostatic component, not elsewhere classified
CPT/HCPCS: 72157; 72158; A9585

== ENCOUNTER 2024-04-09 10:43 | Outpatient (AMB) | payer BC, SELFPAY ==
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
== END 2024-04-09 14:55 | disposition home or self-care (01) ==
LOC: HO.HSMS 10:43
PROVIDERS: PCP Internal Medicine; Visit Provider Nurse Practitioner Family
DX: R51.0 Headache with orthostatic component, not elsewhere classified (principal); M47.819 Spondylosis without myelopathy or radiculopathy, site unspecified
CPT/HCPCS: 99214

== ENCOUNTER → 2024-04-09 10:43 | Outpatient (BNVA) | payer BC, SELFPAY | PROVIDERS: PCP Internal Medicine; Visit Provider Nurse Practitioner Family | DX: G96.810 Intracranial hypotension, unspecified (principal); R51.0 Headache with orthostatic component, not elsewhere classified; R29.898 Other symptoms and signs involving the musculoskeletal system ==

== ENCOUNTER 2024-04-24 07:57 | Outpatient (REF) | payer BC, SELFPAY ==
[2024-04-24 08:31] LABS: MANUAL DIFF FLAG NO
[2024-04-24 09:07] LABS: Basophils Percent Auto 0.6 % (0-2); Eosinophils Absolute Auto 0.1 X10*3/uL (0.0-0.4); Eosinophils Percent Auto 1.5 % (0-4); Hematocrit 43.3 % (42.0-52.0); Hemoglobin 15.3 g/dl (14.0-18.0); Imm Gran Abs Auto 0.01 X10*3/uL (0.00-0.03); Imm Gran Pct Auto 0.2 % (0.0-0.4); Lymphocytes Absolute Auto 1.3 X10*3/uL (1.2-4.9); Lymphocytes Percent Auto 27.6 % (20-40); Mean Corpuscular HGB Conc 35.3 g/dl (31.0-36.0); Mean Corpuscular Hemoglobin 31.1 pg (27.0-33.0); Mean Platelet Volume 9.2 fL (9.4-12.4); Monocytes Absolute Auto 0.4 X10*3/uL (0.1-1.2); Neutrophils Absolute Auto 2.9 x10*3/uL (2.0-8.3); Neutrophils Percent Auto 62.1 % (45-73); Platelet Count 167 X10*3/uL (160-400); Red Blood Count 4.92 X10*6/uL (4.60-5.80); Red Cell Distribution Width 12.5 % (11.0-16.0); White Blood Count 4.7 X10*3/uL (4.8-10.8)
[2024-04-24 09:14] LABS: Estimated Average Glucose 97 mg/dL
[2024-04-24 10:21] LABS: Alanine Aminotransferase 14 U/L (0-40); Albumin Level 4.1 g/dL (3.5-5.0); Alkaline Phosphatase 67 U/L (39-117); Anion Gap 11 (12-20); Aspartate Amino Transferase 15 U/L (5-37); Bilirubin Total 1.4 mg/dL (0.0-1.0); Blood Urea Nitrogen 14 mg/dL (9-16); Carbon Dioxide 29 mmol/L (22-29); Chloride 105 mmol/L (96-108); Cholesterol 186 mg/dL (<200); Estimated Glomerular Filt Rate > 60; Glucose Random 95 mg/dL (60-115); HDL Cholesterol 53 mg/dL (>40); LDL Cholesterol Calculated 118 mg/dL (<100); Sodium 141 mmol/L (135-145); Total Protein 6.8 g/dL (6.5-8.0); Triglycerides 78 mg/dL (<150)
[2024-04-24 10:23] LABS: Free T4 (Free Thyroxine) 0.92 ng/dL (0.71-1.85); Thyroid Stimulating Hormone 2.93 uIU/mL (0.32-4.0)
[2024-04-24 11:05] LABS: Prostate Specific Antigen Scr 0.27 ng/mL (<0.05-4.0); Vitamin B12 852 pg/mL (200-900)
== END 2024-04-24 07:58 | disposition home or self-care (01) ==
LOC: HO.LAB 07:57
PROVIDERS: PCP Internal Medicine; Visit Provider Internal Medicine
DX: Z12.5 Encounter for screening for malignant neoplasm of prostate (principal); Z13.1 Encounter for screening for diabetes mellitus; E78.00 Pure hypercholesterolemia, unspecified
CPT/HCPCS: 36415; 80053; 80061; 82607; 82746; 83036; 84153; 84439; 84443; 85025

== ENCOUNTER 2024-05-14 13:21 | Outpatient (AMB) | payer BC, SELFPAY ==
--- NOTE | 2024-05-14 13:21 | A.OFFPC_ITS ---
Vital Signs 05/14/24 13:22 Height 6 ft 1 in Weight 169 lb BMI 22.3 BP 118/78 Blood Pressure Location Lt brachial Position Sitting Pulse 76 Pulse Source Pulse Oximeter Pulse Oximetry (%) 96 Oxygen Delivery Method Room Air Intake Visit Reasons: PE Child Care Assistant Required: No Accompanied by: Self / Same As Patient Allergies Cortisone Allergy (Unknown, Verified 05/14/24 13:22) Swelling cyclobenzaprine [From Flexeril] Allergy (Unknown, Verified 05/14/24 13:22) unknown Medication List - Last Reconciled 05/14/24 by Radha Bonner MD aspirin 650 mg PO Q4-6H PRN ibuprofen 200 mg PO Q6H PRN loratadine (Claritin) 10 mg PO DAILY multivitamin 1 tab PO DAILY Tobacco use date assessed: 05/14/24 Fall risk assessment: No Falls in past year Last assessed Fall Risk: 05/14/24 Dental Screening Dental Screen Date: 05/14/24 Did you have a dental visit in the last 12 months?: Yes Did you have a dental problem in the last 6 months where you did not have access to dental care?: No Was dental information given to patient?: Patient has dentist HPI PE HPI Details 63-year-old male with impaired glucose t olerance hypercholesterolemia last seen in May 2023. Patient is here for physical exam. Review of the notes in November 2023 has seen Neurology through Telehealth diagnosis of intracranial hypotension and headaches advised to get MRI of the spine cervical, thoracic and lumbar advised to take Claritin and caffeine. MRI showing thoracic spine no suggestion of CSF leak has spondylolisthesis L5-S1 discogenic degenerative changes L5-S1 left central disc protrusion L4-L5 disc bulging L3-L4 mild thoracic kyphoscoliosis mold with multilevel degenerative disc disease and spondylosis numerous multilevel perineural cyst in the thoracic neural foramina no evidence of dural ectasia. Patient's last colonoscopy was November 2020. June colon test pending [facility] Medical History (Updated 05/14/24 @ 14:02 by Radha Bonner MD) Diplopia Lightheadedness Tendinosis of right shoulder Intermittent lightheadedness Vertigo Palpitations Heartburn Arthritis History of palpitations Foul smelling urine Positive colorectal cancer screening using Cologuard test Lateral epicondylitis of right elbow Rotator cuff tear arthropathy of right shoulder Impaired glucose tolerance Hyperbilirubinemia Anxiety Surgical History Hx of colonoscopy History of removal of cyst History of tonsillectomy Family History Father Hypertension Mother Stroke TIA (transient ischemic attack) Paternal Grandmother Stomach cancer Social History (Updated 05/14/24 @ 13:48 by Radha Bonner MD) Housing: House Alcohol intake: current Alcohol intake frequency: a few times a week Alcohol type: beer Comment: once a week 2 drinks Patient Tobacco Use Status: Never used Tobacco e-Cigarette/Vaping Use: Never Used Second Hand Smoke Exposure: No service: No Current occupational status: retired Current occupational exposures/hazards: No Cognitive needs: No Hearing needs: No Vision needs: Yes Questionnaire PHQ-9 Over the last 2 weeks, how often have you been bothered by any of the following problems? 1. Little interest or pleasure in doing things: not at all 2. Feeling down, depressed, or hopeless: not at all 3. Trouble falling or staying asleep, or sleeping too much: not at all 4. Feeling tired or having little energy: not at all 5. Poor appetite or overeating: not at all 6. Feeling bad about yourself - or that you are a failure or have let yourself or your family down: not at all 7. Trouble concentrating on things, such as reading the newspaper or watching television: not at all 8. Moving or speaking so slowly that other people could have noticed. Or the opposite - being so fidgety or restless that you have been moving around a lot more than usual: not at all 9. Thoughts that you would be better off or of hurting yourself in some way: not at all Total score: 0 Depression Screening Interpretation: Negative Depression Screening Done: Yes Source: Developed by Drs. Salas Le, Sandie Blackburn, Genaro Cristobal and colleagues, with an educational victor m from [employer] Thrive Questionnaire Date Thrive assessed: 05/14/24 I am a: Patient What is your living situation today?: I have a steady place to live Within the past 12 months, did the food you bought not last and you didn't have the money to get more?: Never true Within the past 12 months, did you worry whether your food would run out before you got money to buy more?: Never true Do you have trouble paying for medicines?: No Do you have trouble getting transportation to medical appointments?: No Do you have trouble paying your heating and electricity bill?: No Do you have trouble taking care of your child, family member or friend?: No Do you have trouble with day-to-day activities such as bathing, preparing meals, shopping, managing finances, etc.?: No Are you currently unemployed and looking for a job?: No Are you interested in more education?: No Please select the resources that you would like help with: None Currently or been in a relationship where the following occur: No concerns reported THRIVE Score: 0 AUDIT C Alcohol Use Questionnaire (AUDIT-C) 1. How often do you have a drink containing alcohol?: 4 or more times a week 2. How many drinks containing alcohol do you have on a typical day when you are drinking?: 1 or 2 3. How often do you have six or more drinks on one occasion?: Never Total Score: 4 Score Reviewed/Action Taken: Yes NASRA-7 AMB Questionnaire NASRA-7 Date NASRA - 7 assessed: 05/14/24 Feeling nervous, anxious, or on edge: 0 = Not at all Not being able to stop or control worryin = Not at all Worrying too much about different things: 0 = Not at all Trouble relaxin = Not at all Being so restless that it is hard to sit still: 0 = Not at all Becoming easily annoyed or irritable: 0 = Not at all Feeling afraid as if something awful might happen: 0 = Not at all Total ANSRA-7 score (0-4 normal; 5-9 mild; 10-14 moderate; 15-21 severe): 0 Source: Developed by Drs. Salas Le, Sandie Blackburn, Genaro Cristobal and colleagues, with an educational victor m from [employer] Review of Systems Const Denies poor appetite and Denies weakness Eyes Denies no additional complaints ENT Reports Normal hearing present, Denies dizziness, Denies nasal congestion, Denies tinnitus and Denies sore throat Card Denies chest pain, Denies syncope, Denies rapid heart rate and Denies dyspnea Resp Denies cough and Denies dyspnea GI Denies change in stool character, Reports constipation, Denies diarrhea, Denies nausea and Denies vomiting Denies dysuria and Denies urinary frequency Neuro Reports Normal hearing present, Denies confusion, Denies dizziness, Denies syncope and Denies weakness Psych Denies confusion Physical exam (Primary Care) Vital Signs: Last Vital Signs Pulse 76 05/14/24 13:22 BP 118/78 05/14/24 13:22 Pulse Ox 96 05/14/24 13:22 Oxygen Delivery Method Room Air 05/14/24 13:22 BMI result Body Mass Index 22.3 Tobacco/Smoking Status: Tobacco use Status Tobacco use date assessed 05/14/24 05/14/24 13:28 Patient Tobacco Use Status Never used Tobacco 05/14/24 13:28 e-Cigarette/Vaping Use Never Used 05/14/24 13:28 PHQ-9: PHQ-9 Score PHQ-9: Total score 0 05/14/24 13:28 Depression Screening Interpretation: Negative Thrive Assessment: Date of Thrive Assessment Date Thrive assessed 05/14/24 05/14/24 13:28 Currently or been in a relationship where the following occur: No concerns reported Const General: No confusion Orientation/consciousness: No confusion HENMT Head: Yes normocephalic Ears: external ears normal and TM's normal bilaterally Face and sinus: Yes normal facial exam Mouth: moist mucous membranes Throat: Yes tonsils normal Eyes Conjunctivae: conjunctivae normal Pupils: Equal, round and reactive pupils present and Pupil accommodation reflex normal Direct Ophthalmoscopy: normal light reflex Neck Neck: No lymphadenopathy Thyroid: Thyroid normal Chest Chest palpation & inspection: normal inspection of the chest Resp Effort & Inspection: normal respiratory effort and no audible wheezes Auscultation: clear to auscultation bilaterally, no crackles, no wheezes and lung sounds not diminished Cardio Rate: regular rate Rhythm: regular rhythm Peripheral pulses: radial pulses present and dorsalis pedis present GI Other: colon test october Palpation (GI): no masses Auscultation: normal bowel sounds and normoactive bowel sounds Rectal Exam - Male: Yes deferred Male General Exam: Yes normal external exam Skin General skin exam: no rashes or lesions noted Rashes: no rashes Neuro General: No confusion Cranial nerves: Yes Equal, round and reactive pupils present and Yes Normal hearing present Cognition (Neuro): normal cognition Gait exam (Neuro): Normal gait present Motor exam (neuro): 5/5 motor strength present throughout Deep tendon reflexes (DTR's): Right brachioradialis reflex intensity grade: 2+, Left brachioradialis reflex intensity grade: 2+, Right patellar reflex intensity grade: 2+ and Left patellar reflex intensity grade: 2+ Extrem General: No edema Assessment and Plan Assessment & Plan (1) Annual physical exam: Code(s): Z00.00 - Encounter for general adult medical examination without abnormal findings Plan: Patient is advised to eat healthy, keep well hydrated, keep active and have adequate sleep. (2) Impaired glucose tolerance: Code(s): R73.02 - Impaired glucose tolerance (oral) Plan: Decrease the amount of carbohydrate intake, pasta, bread, rice and potatoes are all sugar and that is aside from all the sweet stuff, remember that fruits are good but they are Sweet also. (3) Hypercholesterolemia: Code(s): E78.00 - Pure hypercholesterolemia, unspecified Plan: Avoid fried foods, chicken skin, eggs, butter margarine, pastries and meat. Be it pork or beef they have a lot of cholesterol (4) Intracranial hypotension: Code(s): G96.810 - Intracranial hypotension, unspecified Plan: Patient is being followed up by Neurology and continuing to monitor. (5) Multilevel degenerative joint disease of spine: Code(s): M47.819 - Spondylosis without myelopathy or radiculopathy, site unspecified Plan: Keep active. (6) Plantar fasciitis of right foot: Code(s): M72.2 - Plantar fascial fibromatosis Plan: discussed about exercises Coding Level of Care Code Est Pt Prev Care 40-64y([id number]) Diagnoses Annual physical exam Z00.00 Impaired glucose tolerance R73.02 Hypercholesterolemia E78.00 Intracranial hypotension G96.810 Multilevel degenerative joint disease of spine M47.819 Plantar fasciitis of right foot M72.2
[2024-05-14 13:22] VITALS: BP 118/78; PULSE 76; O2SAT 96; BMI 22.3
== END 2024-05-14 14:06 | disposition home or self-care (01) ==
PROVIDERS: PCP Internal Medicine; Visit Provider Internal Medicine
DX: Z00.00 Encounter for general adult medical examination without abnormal findings (principal); R73.02 Impaired glucose tolerance (oral); E78.00 Pure hypercholesterolemia, unspecified; G96.810 Intracranial hypotension, unspecified; M47.819 Spondylosis without myelopathy or radiculopathy, site unspecified; M72.2 Plantar fascial fibromatosis
CPT/HCPCS: 99396

== ENCOUNTER 2024-10-20 08:25 | Day surgery (SDC) | payer MEDICARE, BC, SELFPAY ==
[2024-10-18 11:26] VITALS: BMI 22.6
--- NOTE | 2024-10-19 08:23 | HO.ANESPROP2 ---
Documented by User: Kayy Schmidt NP 10/19/24 08:24 HPI - Anesthesia Eval Consult details Narrative: 64yo M for Colonoscopy PMFSH Active Problems Active Problems: All Active Problems Plantar fasciitis of right foot (Acute) Multilevel degenerative joint disease of spine (Acute) Neck tightness (Acute) Headache due to low cerebrospinal fluid pressure (Acute) Impacted cerumen of right ear (Acute) Intracranial hypotension (Acute) Hypercholesterolemia (Acute) Low vitamin D level (Acute) Hyperbilirubinemia (Acute) Tubular adenoma of colon (Acute) Annual physical exam (Acute) Impaired glucose tolerance (Acute) Past Medical History Medical History (Updated 05/14/24 @ 14:02 by Radha Bonner MD) Diplopia Lightheadedness Tendinosis of right shoulder Intermittent lightheadedness Vertigo Palpitations Heartburn Arthritis History of palpitations Foul smelling urine Positive colorectal cancer screening using Cologuard test Lateral epicondylitis of right elbow Rotator cuff tear arthropathy of right shoulder Impaired glucose tolerance Hyperbilirubinemia Anxiety Family History Family History Father Hypertension Mother Stroke TIA (transient ischemic attack) Paternal Grandmother Stomach cancer Family history of problems with anesthesia: No Surgical History Surgical History (Updated 10/18/24 @ 11:25 by Samia Mota RN) Hx of colonoscopy History of removal of cyst History of tonsillectomy History of Problems with Anesthesia: No Social History Social History (Updated 10/18/24 @ 11:30 by Samia Mota RN) Household Members: Spouse Housing: House Alcohol intake: current Alcohol intake frequency: does not drink Alcohol type: beer Comment: once a week 2 drinks Patient Tobacco Use Status: Never used Tobacco e-Cigarette/Vaping Use: Never Used Second Hand Smoke Exposure: No Have you been hit, kicked, punched, or otherwise hurt by someone within the past year? If so, by whom?: No Are you DNR?: No Advance Directives: No Advance Directives Information Provided: Yes service: No Current occupational status: retired Current occupational exposures/hazards: No Cognitive needs: No Hearing needs: No Vision needs: Yes Meds Allergies Allergy/AdvReac Type Severity Reaction Status Date / Time Cortisone Allergy Intermediate Swelling Verified 10/18/24 11:25 cyclobenzaprine Allergy Unknown unknown Verified 05/14/24 13:22 [From [facility]] Home Medications ?Medication ?Instructions ?Recorded ?Confirmed ?Last Taken ?Type ibuprofen 200 mg tablet 200 mg PO Q6H PRN Pain 07/10/20 10/18/24 10/10/24 History multivitamin 1 tab PO DAILY 07/10/20 10/18/24 10/13/24 History loratadine 10 mg tablet (Claritin) 10 mg PO DAILY 02/03/23 10/18/24 10/13/24 History aspirin 325 mg tablet 650 mg PO Q4-6H PRN Pain 05/14/24 10/18/24 10/10/24 History Exam Height,Weight and Vital Signs: Height 6 ft 1 in Weight 77.564 kg Assessment and Plan Assessment Anesthesia Assessment: Chart Reviewed Final Anesthetic Review Family History of Problems with Anesthesia: No History of Problems with Anesthesia: No Documented by User: Artur Seth MD 10/20/24 09:55 PMFSH Past Medical History Medical History (Updated 05/14/24 @ 14:02 by Radha Bonner MD) Diplopia Lightheadedness Tendinosis of right shoulder Intermittent lightheadedness Vertigo Palpitations Heartburn Arthritis History of palpitations Foul smelling urine Positive colorectal cancer screening using Cologuard test Lateral epicondylitis of right elbow Rotator cuff tear arthropathy of right shoulder Impaired glucose tolerance Hyperbilirubinemia Anxiety Family History Family History Father Hypertension Mother Stroke TIA (transient ischemic attack) Paternal Grandmother Stomach cancer Surgical History Surgical History (Updated 10/18/24 @ 11:25 by Samia Mota RN) Hx of colonoscopy History of removal of cyst History of tonsillectomy Social History Social History (Updated 10/18/24 @ 11:30 by Samia Mota RN) Household Members: Spouse Housing: House Alcohol intake: current Alcohol intake frequency: does not drink Alcohol type: beer Comment: once a week 2 drinks Patient Tobacco Use Status: Never used Tobacco e-Cigarette/Vaping Use: Never Used Second Hand Smoke Exposure: No Have you been hit, kicked, punched, or otherwise hurt by someone within the past year? If so, by whom?: No Are you DNR?: No Advance Directives: No Advance Directives Information Provided: Yes service: No Current occupational status: retired Current occupational exposures/hazards: No Cognitive needs: No Hearing needs: No Vision needs: Yes Meds Allergies Allergy/AdvReac Type Severity Reaction Status Date / Time Cortisone Allergy Intermediate Swelling Verified 10/18/24 11:25 cyclobenzaprine Allergy Unknown unknown Verified 05/14/24 13:22 [From [facility]] Home Medications ?Medication ?Instructions ?Recorded ?Confirmed ?Last Taken ?Type ibuprofen 200 mg tablet 200 mg PO Q6H PRN Pain 07/10/20 10/18/24 10/10/24 History multivitamin 1 tab PO DAILY 07/10/20 10/18/24 10/13/24 History loratadine 10 mg tablet (Claritin) 10 mg PO DAILY 02/03/23 10/18/24 10/13/24 History aspirin 325 mg tablet 650 mg PO Q4-6H PRN Pain 05/14/24 10/18/24 10/10/24 History Exam Airway Mallampati Class: II TM Dist: >3cm Neck ROM: Full Loose/Missing/Broken Teeth: No Heart: ok Lungs: ok Assessment and Plan Assessment Anesthesia Assessment: Anesthesia Plan Discussed Final Anesthetic Review NPO: Yes ASA Class: II Final Preanesthetic Review: No Changes in Pt Med Stat, Meds/Allgs Chart Reviewed, Consent Obtained/Reviewed and Anes Risks/Benef Reviewed Patient Risk: Low Procedure Risk: Low Anesthetic Plan Anesthetic Plan: MAC: and Agree w/ Assess. and Plan Disposition: Standard PACU
[2024-10-20 08:31] VITALS: BP 134/78; PULSE 88; RESP 20; TEMP 36.1; O2SAT 97; BMI 21.8
--- OUTSIDE RECORDS SUMMARY | 2024-10-20 08:39 | XMS_ITS ---
Author Organization [facility] Address [address] [place] [address] Care Team Providers Care Call Center Professional Name Role Phone Po Radha LUTZ Primary Care Provider Salas Morelos [phone] ALLERGIES Allergen (clinical drug ingredient) Drug/Non Drug Allergy documented on EMR Reaction Allergy Type Onset Date Status hydrocortisone Cortizone-10 Unknown Drug Allergy Active REASON FOR VISIT Patient presents today for a colon screening MEDICATIONS Medication SIG (Take, Route, Frequency, Duration) Notes Start Date End Date Status Multivitamin Active Claritin Active SOCIAL HISTORY Tobacco Use: Social History Observation Description Date Details (start date - stop date) Never Smoker NA - NA Sex Assigned At : Social History Observation Description Sex Assigned At Unknown Tobacco Use/Smoking Question Answer Notes Patient is a nonsmoker Alcohol Screen Question Answer Notes Did you have a drink contain ing alcohol in the past year? Yes How often did you have a dri nk containing alcohol in the past year? 2 to 3 times a week (3 points) How many drinks did you have on a typical day when you were drinking in the past year? 1 or 2 drinks (0 point) Points 3 Interpretation Negative PROBLEMS Problem Type ICD Code Onset Dates Problem Status W/U Status Risk SNOMED Code Notes Problem Encounter for screening for malignant neoplasm of colon (Z12.11) Active confirmed Screening for malignant neoplasm of colon (545831152) Problem History of adenomatous polyp of colon (Z86.010) Active confirmed History of adenomatous polyp of colon (382403816) Problem Colon cancer screening (Z12.11) Active confirmed Colon cancer screening (490924456) Problem Serrated polyp of colon (K63.5) Active confirmed Serrated po lyp of colon (196038736) Problem Personal history of adenomatous and serrated colon polyps (Z86.0101) Active confirmed VITAL SIGNS BMI 22.56 kg/m2 06/29/2024 Blood pressure systolic 00 mm Hg 06/29/20 24 Blood pressure diastolic 00 mm Hg 024 Height 73 in 06/29/2024 Weight 171 lbs 06/29/2024 Encounters Encounter Location Date Provider Diagnosis [facility] [address] [place] [address] 06/29/2024 Salas Frederick Encounter for screening for malignant neoplasm of colon Z12.11 ; Serrated polyp of colon K63.5 ; History of adenomatous polyp of colon Z86.010 and Colon cancer screening Z12.11 ASSESSMENTS Encounter Date Diagnosis Assessment Notes Treatment Notes Treatment Clinical Notes 06/29/2024 Encounter for screening for malignant neoplasm of colon (ICD-10 - Z12.11) 06/29/2024 Serrated polyp of colon (ICD-10 - K63.5) 06/29/2024 History of adenomatous polyp of colon (ICD-10 - Z86.010) 06/29/2024 Colon cancer screening (ICD-10 - Z12.11) PLAN OF TREATMENT Future Test Test Name Order Date COLONOSCOPY 06/29/2024 Next Appt Details Follow Up: prn, Reason: Provider Name:Salas Frederick , 10/20/2024 09:30:00 AM, [address] [place] [address], [phone], Progress Notes * Examination Category Sub-Category Detail Notes General Examination GENERAL APPEARANCE: pleasant , well nourished, well developed, in no acute distress HEAD: EYES: sclera non-icteric EARS: NOSE: THROAT: NECK/THYROID: no cervical lymphade nopathy, neck supple HEART: S1, S2 normal CHEST: LUNGS: clear to auscultatio n bilaterally ABDOMEN: normal bowel sounds, no guarding or rigidity, no guarding or rigidity, no masses palpable, soft, nontender, nondistended NEUROLOGIC: alert and oriented SKIN: nonjaundiced, no spi livia angiomata EXTREMITIES: no edema PERIPHERAL PULSES: BACK: BREASTS: MUSCULOSKELETAL: MALE GENITOURINARY: LYMPH NODES: RECTAL EXAM: FEMALE GENITOURINARY: ORAL CAVITY: mucosa moist
--- OUTSIDE RECORDS SUMMARY | 2024-10-20 08:39 | XMS_ITS ---
Author Organization [facility] Address [address] [place] [phone] Care Team Providers Care Rn Sane Name Role Phone Po Radha LUTZ Primary Care Provider Salas Morelos Unavailable [phone] REASON FOR VISIT ? a 5 year recall Encounters Encounter Location Date Provider Diagnosis [facility] [address] [place] [phone] 10/30/2023 Salas Frederick PLAN OF TREATMENT Next Appt Details Provider Name:Salas Frederick , 10/20/2024 09:30:00 AM, [address] [place] [address] , [place], [place], [phone],
--- OUTSIDE RECORDS SUMMARY | 2024-10-20 08:39 | XMS_ITS | Patient Health Record ---
Author Organization [facility] Address [address] [place] [address] Care Team Providers Care Pest Control Applicator Name Role Phone Radha Bonner MD Primary Care Provider Salas Morelos [phone] ALLERGIES Allergen (clinical drug ingredient) Drug/Non Drug Allergy documented on EMR Reaction Allergy Type Onset Date Status hydrocortisone Cortizone-10 Unknown Drug Allergy Active REASON FOR REFERRAL No Information MEDICATIONS Medication SIG (Take, Route, Frequency, Duration) Notes Start Date End Date Status Multivitamin Active Claritin Active IMMUNIZATIONS Vaccine Route Administration Date Status Comme nts Influenza Unknown 06/22/2020 Administered SOCIAL HISTORY Tobacco Use: Social History Observation [...] W/U Status Risk SNOMED Code Notes Problem Positive colorectal cancer screening using Cologuard test (R19.5) Active confirmed Abnormal feces (504081494) Problem Encounter for screening for malignant neoplasm of colon (Z12.11) Active confirmed Screening for malignant neoplasm of colon (465599735) Problem History of adenomatous polyp of colon (Z86.010) Active confirmed History of adenomatous polyp of colon (060905194) Problem Colon cancer screening (Z12.11) Active confirmed Colon cancer screening (323443510) Problem Serrated polyp of colon (K63.5) Active confirmed Serrated po lyp of colon (605583493) Problem Personal history of adenomatous and serrated colon polyps (Z86.0101) Active confirmed VITAL SIGNS Blood pressure diastolic 00 mm Hg 06/29/2024 Height 73 in 06/29/2024 Blood pressure systolic 00 mm Hg 06/29/2024 Weight 171 lbs 06/29/2024 BMI 22.56 kg/m2 06/29/2024 Encounters Encounter Location Date Provider Diagnosis [facility] [place] [address] [place] [phone] 10/20/2024 Salas Frederick [facility] [address] [place] [phone] 06/29/2024 Salas Frederick Encounter for screening for malignant neoplasm of colon Z12.11 ; Serrated polyp of colon K63.5 ; History of adenomatous polyp of colon Z86.010 and Colon cancer screening Z12.11 [facility] [address] [place] [phone] 10/30/2023 Salas Frederick ASSESSMENTS Encounter Date Diagnosis Assessment Notes Treatment Notes Treatment Clinical Notes 06/29/2024 Encounter for screening for malignant neoplasm of colon (ICD-10 - Z12.11) 06/29/2024 Serrated polyp of colon (ICD-10 - K63.5) 06/29/2024 History of adenomatous polyp of colon (ICD-10 - Z86.010) 06/29/2024 Colon cancer screening (ICD-10 - Z12.11) PLAN OF TREATMENT Future Test Test Name Order Date COLONOSCOPY 11/07/2020 COLONOSCOPY 06/29/2024 Next Appt Details Provider Name:Salas Frederick , 10/20/2024 09:30:00 AM, [address] [place] [address] , [place], [place], [phone], Insurance Providers Payer Name Payer Address Payer Phone Subscriber Number Group Number Insured Name Patient Relationship to Insured Coverage Start Date Coverage End Date MEDICARE OF [employer]AY[employer] HINSON [address] [place] [address] [id number] NADEGE ROJAS Self - patient is the insured [facility] [address] [place] [address] [phone] [id number] NADEGE ROJAS Self - patient is the insured MEDICAL (GENERAL) HISTORY Medical History History ICD Code Denies DE,DM,CVA,Lung disease,renal dise ase Seasonal allergies Negative colonoscopy in 01/2010 Colonoscopy in November of 2020 revealed a small tubular adenoma and a sessile serrated polyp in the ascending colon, both of which were removed Surgical History Surgery Date(Month/Year) Tonsillectomy
--- OUTSIDE RECORDS SUMMARY | 2024-10-20 08:39 | XMS_ITS ---
Author Organization [facility] Address [address] [place] [address] Care Team Providers Care Retort Kiln Burner Name Role Phone Po Radha LUTZ Primary Care Provider Salas Morelos [phone] REASON FOR VISIT screening,hx polyps,serrated polyp colon Encounters Encounter Location Date Provider Diagnosis [facility] [place] [address] [place] [phone] 10/20/2024 Salas Frederick PLAN OF TREATMENT Next Appt Details Provider Name:Salas Frederick , 10/20/2024 09:30:00 AM, [address] [place] [address], [phone],
[2024-10-20] MEDS: Lactated Ringers 1,000 ML 100 ML IVCONT (08:55)
[2024-10-20 10:25] VITALS: BP 95/62; PULSE 83; RESP 18; TEMP 36.3; O2SAT 94
[2024-10-20 10:40] VITALS: BP 108/81; PULSE 73; RESP 16; O2SAT 98
--- NOTE | 2024-10-20 10:42 | PM.OP ---
Brief Operative Note Date of Service: 10/20/24 Pre-op diagnosis: Screening Post-op diagnosis: other (Diverticulosis) Procedure: Colonoscopy to the cecum and TI Surgeon: Salas Frederick MD Anesthesia: MAC Was an Web Marketing Intern used for this Procedure?: No Estimated blood loss (mL): 0 Pathology: none sent Condition: stable Disposition: PACU
[2024-10-20 10:49] VITALS: BP 118/82; PULSE 81; RESP 20; TEMP 36.4; O2SAT 98
--- NOTE | 2024-10-20 11:25 | OP_ITS ---
DATE OF SERVICE: 10/20/2024 SURGEON: Salas Frederick MD INDICATIONS: The patient presents for evaluation of personal history of colon polyps and colorectal cancer screening. Full consent has been obtained from him for this, including risks of bleeding and perforation. PREOPERATIVE DIAGNOSIS: POSTOPERATIVE DIAGNOSIS: PROCEDURE PERFORMED: Colonoscopy to the cecum and terminal ileum. ESTIMATED BLOOD LOSS: COMPLICATIONS: ANESTHESIA: Monitored anesthesia care. ASSISTANTS: SPECIMENS: PREOPERATIVE DIAGNOSES: Colorectal cancer screening and personal history of colon polyps. POSTOPERATIVE DIAGNOSES: Colorectal cancer screening and personal history of colon polyps, diverticulosis, and internal hemorrhoids. DESCRIPTION OF PROCEDURE: The patient was placed in the left lateral decubitus position. The digital rectal exam revealed no abnormalities. The Olympus video pediatric colonoscope was entered into the rectum and advanced easily to the cecum. Once in the cecum, I identified normal-appearing cecal pouch with appendiceal orifice and a normal-appearing ileocecal valve. The terminal ileum was cannulated and appeared normal. The scope was withdrawn back in the colon. The entire cecum and ileocecal valve appeared normal. The scope was slowly withdrawn assessing all mucosal surfaces carefully. Preparation was excellent. I did not visualize any sign of polyps, colitis, nor angiodysplasia. There was a mild amount of sigmoid diverticulosis. In the rectum, scope was retroflexed visualizing internal hemorrhoids, but no other pathology. The rectal mucosa appeared normal. The scope was straightened and withdrawn from the patient. He tolerated the procedure well and was returned to the recovery area in stable condition. IMPRESSION: 1. Diverticulosis. 2. Internal hemorrhoids. PLAN: I would recommend a repeat colonoscopy in 5 years for further screening. He will otherwise see me on a p.r.n. basis. This has been discussed with his . MD RIK Mancini/JEAN MARIE / [phone]
== END 2024-10-20 11:22 | disposition home or self-care (01) ==
PROVIDERS: PCP Internal Medicine; Visit Provider Internal Medicine
PROC: 0DJD8ZZ Inspection of Lower Intestinal Tract, Via Natural or Artificial Opening Endoscopic (ICD-10-PCS; CPT 45378; principal; 2024-10-20 09:30)
DX: Z12.11 Encounter for screening for malignant neoplasm of colon (principal); Z86.0101 Personal history of adenomatous and serrated colon polyps; K57.30 Diverticulosis of large intestine without perforation or abscess without bleeding; K64.8 Other hemorrhoids; J30.2 Other seasonal allergic rhinitis; Z79.82 Long term (current) use of aspirin; Z79.1 Long term (current) use of non-steroidal anti-inflammatories (NSAID); Z79.899 Other long term (current) drug therapy; Z88.8 Allergy status to other drugs, medicaments and biological substances; Z98.890 Other specified postprocedural states
CPT/HCPCS: G0105; J2003; J2704

== ENCOUNTER 2025-05-20 13:05 | Outpatient (AMB) | payer BC, SELFPAY ==
--- OUTSIDE RECORDS SUMMARY | 2024-10-20 05:30 | XMS_ITS ---
Author Organization [facility] Address [address] [place] [address] Care Team Providers Care Concrete Polisher Name Role Phone Po Radha LUTZ Primary Care Provider Salas Morelos Unavailable [phone] REASON FOR VISIT screening,hx polyps,serrated polyp colon Problems Problem Type SNOMED Code ICD Code Onset Dates Problem Status W/U Status Risk Notes Problem Diverticular disease of colon (682638620) Diverticulosis of large intestine without perforation or abscess without bleeding (K57.30) Active confirmed Encounters Encounter Location Date Provider Diagnosis [facility] [place] [address] [place] [phone] 10/20/2024 Salas Frederick Colon cancer scree luis [...] * NADEGE ROJASDOB:[birth year] (64 yo M)Acc No.[id number]:10/20/2024 COLON WITH MAC Patient: NADEGE PERRY Provider: Stu Frederick MD :1960 A ge:64 Y S ex:Male Date:10/20/2024 Address:[address] [place], [place] [phone] Pcp:Radha Bonner MD Subjective: * Chief Complaints: [...] 10/20/2024 Generated for Milo winston/Christine/Cristianitting on: 0 05/20/2025 01:26 PM EDT
[2025-05-20 13:10] VITALS: BP 122/78; PULSE 74; O2SAT 98; BMI 21.4
--- NOTE | 2025-05-20 13:10 | A.OFFPC_ITS ---
Vital Signs 05/20/25 13:10 Height 6 ft 1 in Weight 162 lb BMI 21.4 BP 122/78 Blood Pressure Location Lt brachial Position Sitting Pulse 74 Pulse Source Pulse Oximeter Pulse Oximetry (%) 98 Oxygen Delivery Method Room Air Intake Visit Reasons: Annual Exam Allergies Cortisone Allergy (Intermediate, Verified 05/20/25 13:11) Swelling cyclobenzaprine (From Flexeril) Allergy (Unknown, Verified 05/20/25 13:11) unknown Medication List - Last Reconciled 05/20/25 by Radha Bonner MD aspirin 650 mg PO Q4-6H PRN ibuprofen 200 mg PO Q6H PRN loratadine (Claritin) 10 mg PO DAILY Tobacco use date assessed: 05/20/25 Fall risk assessment: No Falls in past year Last assessed Fall Risk: 05/20/25 Dental Screening Dental Screen Date: 05/20/25 Did you have a dental visit in the last 12 months?: Yes Did you have a dental problem in the last 6 months where you did not have access to dental care?: No Was dental information given to patient?: Patient has dentist [facility] Medical History (Updated 05/20/25 @ 13:45 by Radha Bonner MD) Diplopia Lightheadedness Tendinosis of right shoulder Intermittent lightheadedness Vertigo Palpitations Heartburn Arthritis History of palpitations Foul smelling urine Positive colorectal cancer screening using Cologuard test Lateral epicondylitis of right elbow Rotator cuff tear arthropathy of right shoulder Impaired glucose tolerance Hyperbilirubinemia Anxiety Surgical History (Updated 10/18/24 @ 11:25 by Samia Mota RN) Hx of colonoscopy History of removal of cyst History of tonsillectomy Family History Father Hypertension Mother Stroke TIA (transient ischemic attack) Paternal Grandmother Stomach cancer Social History (Updated 05/20/25 @ 13:57 by Radha Bonner MD) Household Members: Spouse Housing: House Alcohol intake: current Alcohol intake frequency: does not drink Alcohol type: beer Comment: 1-2 x a week , 1-2 drinks Patient Tobacco Use Status: Never used Tobacco Tobacco use type: Cigarette e-Cigarette/Vaping Use: Never Used Second Hand Smoke Exposure: No service: No Current occupational status: retired Current occupational exposures/hazards: No Cognitive needs: No Hearing needs: No Vision needs: Yes Questionnaire PHQ-9 Over the last 2 weeks, how often have you been bothered by any of the following problems? 1. Little interest or pleasure in doing things: not at all 2. Feeling down, depressed, or hopeless: not at all 3. Trouble falling or staying asleep, or sleeping too much: several days 4. Feeling tired or having little energy: not at all 5. Poor appetite or overeating: not at all 6. Feeling bad about yourself - or that you are a failure or have let yourself or your family down: not at all 7. Trouble concentrating on things, such as reading the newspaper or watching television: not at all 8. Moving or speaking so slowly that other people could have noticed. Or the opposite - being so fidgety or restless that you have been moving around a lot more than usual: not at all 9. Thoughts that you would be better off or of hurting yourself in some way: not at all Total score: 1 Depression Screening Interpretation: Positive Depression Screening Done: Yes 92405 - PHQ-9 Billing: Yes Source: Developed by Drs. Salas Le, Sandie Blackburn, Genaro Cristobal and colleagues, with an educational victor m from [employer]. Thrive Questionnaire Date Thrive assessed: 05/20/25 I am a: Patient What is your living situation today?: I have a steady place to live Within the past 12 months, did the food you bought not last and you didn't have the money to get more?: Never true Within the past 12 months, did you worry whether your food would run out before you got money to buy more?: Never true Do you have trouble paying for medicines?: No Do you have trouble getting transportation to medical appointments?: No Do you have trouble paying your heating and electricity bill?: No Do you have trouble taking care of your child, family member or friend?: No Do you have trouble with day-to-day activities such as bathing, preparing meals, shopping, managing finances, etc.?: No Are you currently unemployed and looking for a job?: No Are you interested in more education?: No Please select the resources that you would like help with: None Currently or been in a relationship where the following occur: No concerns reported THRIVE Score: 0 AUDIT C Alcohol Use Questionnaire (AUDIT-C) 1. How often do you have a drink containing alcohol?: 2-4 times a month 2. How many drinks containing alcohol do you have on a typical day when you are drinking?: 1 or 2 3. How often do you have six or more drinks on one occasion?: Never Total Score: 2 NASRA-7 AMB Questionnaire NASRA-7 Date NASRA - 7 assessed: 05/20/25 Feeling nervous, anxious, or on edge: 0 = Not at all Not being able to stop or control worryin = Not at all Worrying too much about different things: 0 = Not at all Trouble relaxin = Not at all Being so restless that it is hard to sit still: 0 = Not at all Becoming easily annoyed or irritable: 0 = Not at all Feeling afraid as if something awful might happen: 0 = Not at all Total NASRA-7 score (0-4 normal; 5-9 mild; 10-14 moderate; 15-21 severe): 0 Source: Developed by Drs. Salas Le, Sandie Blackburn, Genaro Cristobal and colleagues, with an educational victor m from [employer]. NASRA-7 Assessment Billing NASRA-7 Assessment Tool: NASRA-7 Assessment 99257 Review of Systems Const Denies poor appetite and Denies weakness Eyes Denies no additional complaints ENT Reports Normal hearing present, Denies dizziness, Denies nasal congestion, Denies tinnitus and Denies sore throat Card Denies chest pain, Denies syncope, Denies rapid heart rate and Denies dyspnea Resp Denies cough and Denies dyspnea GI Denies change in stool character, Reports constipation, Denies diarrhea, Denies nausea and Denies vomiting Denies dysuria and Denies urinary frequency Neuro Reports Normal hearing present, Denies confusion, Denies dizziness, Denies syncope and Denies weakness Psych Denies confusion Physical exam (Primary Care) Vital Signs: Last Vital Signs Pulse 74 05/20/25 13:10 BP 122/78 05/20/25 13:10 Pulse Ox 98 05/20/25 13:10 Oxygen Delivery Method Room Air 05/20/25 13:10 BMI result Body Mass Index 21.4 Tobacco/Smoking Status: Tobacco use Status Tobacco use date assessed 05/20/25 05/20/25 13:11 Patient Tobacco Use Status Never used Tobacco 05/20/25 13:57 Tobacco use type Cigarette 05/20/25 13:57 e-Cigarette/Vaping Use Never Used 05/20/25 13:57 PHQ-9: PHQ-9 Score PHQ-9: Total score 1 05/20/25 13:45 Depression Screening Interpretation: Positive Thrive Assessment: Date of Thrive Assessment Date Thrive assessed 05/20/25 05/20/25 13:11 Currently or been in a relationship where the following occur: No concerns reported Const General: No confusion Orientation/consciousness: No confusion HENMT Head: Yes normocephalic Ears: external ears normal and TM's normal bilaterally Face and sinus: Yes normal facial exam Mouth: moist mucous membranes Throat: Yes tonsils normal Eyes Conjunctivae: conjunctivae normal Pupils: Equal, round and reactive pupils present and Pupil accommodation reflex normal Direct Ophthalmoscopy: normal light reflex Neck Neck: No lymphadenopathy Thyroid: Thyroid normal Chest Chest palpation & inspection: normal inspection of the chest Resp Effort & Inspection: normal respiratory effort and no audible wheezes Auscultation: clear to auscultation bilaterally, no crackles, no wheezes and lung sounds not diminished Cardio Rate: regular rate Rhythm: regular rhythm Peripheral pulses: radial pulses present and dorsalis pedis present GI Other: Patient had colonoscopy recently Palpation (GI): no masses Auscultation: normal bowel sounds and normoactive bowel sounds Rectal Exam - Male: Yes deferred Male General Exam: Yes normal external exam Skin General skin exam: no rashes or lesions noted Rashes: no rashes Neuro General: No confusion Cranial nerves: Yes Equal, round and reactive pupils present and Yes Normal hearing present Cognition (Neuro): normal cognition Gait exam (Neuro): Normal gait present Motor exam (neuro): 5/5 motor strength present throughout Deep tendon reflexes (DTR's): Right brachioradialis reflex intensity grade: 2+, Left brachioradialis reflex intensity grade: 2+, Right patellar reflex intensity grade: 2+ and Left patellar reflex intensity grade: 2+ Extrem General: No edema Coding Level of Care Code Est Pt Prev Care >65y(45487) Diagnoses Annual physical exam Z00.00 Syncope, near R55 Plantar fasciitis of right foot M72.2 Additional Codes NASRA-7 Assessment Billing - NASRA-7 Assessment Tool: NASRA-7 Assessment 12911 ([id number]) PHQ-9 - 47760 - PHQ-9 Billing: Yes ([id number]) Assessment & Plan Assessment & Plan (1) Annual physical exam: Code(s): Z00.00 - Encounter for general adult medical examination without abnormal findings Category: Medical Plan: Patient is advised to eat healthy, keep well hydrated, keep active and have adequate sleep. (2) Syncope, near: Code(s): R55 - Syncope and collapse Category: Medical Plan: Discussed with the patient regarding further workup or continue to monitor (3) Plantar fasciitis of right foot: Code(s): M72.2 - Plantar fascial fibromatosis Category: Medical Plan History of Present Illness The patient is a 64-year-old male presenting for a physical exam and review of chronic conditions. The patient has a history of impaired glucose tolerance, which has been monitored over time. He also has a history of tubular adenoma of the colon, with the last colonoscopy performed in November 2020, revealing diverticular disease and hemorrhoids. The patient has hypercholesterolemia, which has been managed with lifestyle modifications and medication. 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 In September 2024, a colonoscopy was performed, showing diverticular disease and hemorrhoids. The patient experienced a nearsyncopal episode in December, which led to an emergency room visit. Recent laboratory tests from April showed normal blood count, mild pancytopenia, normal electrolytes, renal function, blood sugar, liver function, cholesterol, PSA, B12, folic acid, thyroid levels, and urine test. Health Maintenance - Colonoscopy performed in September 2024 showing diverticular disease and hemorrhoids Social History Review of Systems Physical Exam General: Cooperative, healthy appearing, comfortable, no acute distress and well developed Orientation: Patient oriented x3 Limitations: No limitations Head: Normal to inspection Ears: Hearing grossly normal bilaterally Nose: Normal external nose present Face and sinus: Normal facial exam Eyes: Appearance normal, both eyes and all related structures Neck: Normal visual inspection and Yes full ROM Respiratory: Normal respiratory effort and able to speak in complete sentences. Clear to auscultation bilaterally Cardiovascular: Regular rate and rhythm. Normal S1 and S2 GI: Normal to inspection. Soft to palpation and nontender Skin: No rashes or lesions noted Neuro: Patient oriented x3 Extremities: Normal to inspection, slight tenderness to touch on the foot with pinkness and redness noted. Results - Labs: Normal blood count, mild pancytopenia, normal electrolytes, renal function, blood sugar, liver function, cholesterol, PSA, B12, folic acid, thyroid levels, and urine test Plan Patient was informed and verbally consented to the use of an ambient scribe for clinic note documentation during this visit. 1. Impaired Glucose Tolerance The patient will continue to monitor blood glucose levels and adhere to dietary modifications to manage impaired glucose tolerance. 2. Tubular Adenoma Of The Colon The patient will continue regular surveillance colonoscopies to monitor for any changes in the adenoma. 3. Hypercholesterolemia The patient will continue with lifestyle modifications and medication to manage hypercholesterolemia. 4. Multilevel Degenerative Joint Disease Of The Spine The patient will continue with pain management strategies and physical therapy as needed for degenerative joint disease of the spine. 5. Diverticular Disease The patient will maintain a high-fiber diet to manage diverticular disease. 6. Hemorrhoids The patient will use topical treatments as needed for hemorrhoid management. 7. Nearsyncopal Episode The patient will monitor for any further episodes and seek medical attention if symptoms recur. Discussion Notes I discussed with the patient the importance of continuing lifestyle modifications and regular monitoring for his chronic conditions, including impaired glucose tolerance and hypercholesterolemia. We also reviewed the need for regular colonoscopies due to his history of tubular adenoma and diverticular disease. The patient was advised to seek medical attention if he experiences any further nearsyncopal episodes. Patient Instructions - Continue to monitor blood glucose levels and adhere to dietary modifications. - Maintain lifestyle modifications and take prescribed medications for cholesterol management. - Schedule regular colonoscopies as advised by your healthcare provider. - Follow pain management strategies and attend physical therapy for joint disease. - Maintain a high-fiber diet to manage diverticular disease. - Use topical treatments as needed for hemorrhoid management. - Seek medical attention if experiencing further nearsyncopal episodes. Orders: Orders Comprehensive Met. Panel Today E78.00 - Pure hypercholesterolemia, unspecified Lipid Panel Today E78.00 - Pure hypercholesterolemia, unspecified Thyroid Stimulating Hormone Today E78.00 - Pure hypercholesterolemia, unspecified Prostate Specific Antigen Scr Today E78.00 - Pure hypercholesterolemia, unspecified Magnesium Today E78.00 - Pure hypercholesterolemia, unspecified UA CC w/rflx Micro + Cult Today E78.00 - Pure hypercholesterolemia, unspecified, R30.0 - Dysuria C Reactive Protein Today E78.00 - Pure hypercholesterolemia, unspecified Complete Blood Count Auto Diff Today E78.00 - Pure hypercholesterolemia, unspecified Free T4 (Free Thyroxine) Today E78.00 - Pure hypercholesterolemia, unspecified Vitamin B12 and Folate Today E78.00 - Pure hypercholesterolemia, unspecified Erythrocyte Sedimentation Rate Today E78.00 - Pure hypercholesterolemia, unspecified
--- OUTSIDE RECORDS SUMMARY | 2025-05-20 13:26 | XMS_ITS | Patient Health Record ---
Author Organization [facility] Address [address] [place] [address] Care Team Providers Care Esthetician Name Role Phone Radha Bonner Primary Care Provider Julia Funez Unavailable [phone] Allergies Allergen (clinical drug ingredient) Drug/Non Drug Allergy documented on EMR Reaction Allergy Type Onset Date Status Cortisone (uncoded) Unknown Allergy Active Reason For Referral No Information Medications Medication SIG (Take, Route, Fr equency, Duration) Notes Start Date End Date Status Proctosol HC Not-Dave ing Meloxicam Not-Taking Nightsplint . . . AFO - L1930; Duration: . Active Multivitamin Active Physical Therapy . . . 2-3x/week; Durat ion: 3-4 weeks 12/23/2018 Active Social History Tobacco Use: Social History Observation Description Date Details (start date - stop date) Never Smoker NA - NA Tobacco Use/Smoking Question Answer Notes Are you a: nonsmoker Additional Findings: Tobacco Non-User Current no n-smoker Alcohol Screen Question Answer Notes Did you have a drink containing alcohol in the p ast year? Yes Points 0 Interpretation Negative Tobacco use other than smoking: Question Answer Notes Are you an other tobacco user? No Plan Of Treatment Pending Test Test Name Order Date X ray : Foot, left 3V 11/24/2018 Insurance Providers Payer Name Payer Address Payer Phone Subscriber Number Group Number Insured Name Patient Relationship to Insured Coverage Start Date Coverage End Date [facility] [address] [place] [address] [id number] Suraj Rojas Self - patient is the insured Medical (General) History Medical History History ICD Code Measles Mumps Chicken pox Surgical History Surgery Date(Month/Year) tonsillectomy
--- OUTSIDE RECORDS SUMMARY | 2025-05-20 13:26 | XMS_ITS | Encounter Summary ---
Author Organization [facility] Address [address] [place] [address] Phone Care Team Providers Care Enrollment Services Dean Name Role Phone Radha Bonner MD Primary Care Provider [phone] Encounter Details Date Type Department Care Team (Late st Contact Info) Description 11/06/2021 Procedure Pass [address] [place] [address] Social History Tobacco Use Types Packs/Day Years Used Date Smoking Tobacco: Never Smokeless Tobacco: Never Alcohol Use Standard Drinks/Week Comments Yes 2 (1 standard drink = 0.6 oz pur e alcohol) Sex and Gender Information Value Date Recorded Sex Assigned at Not on file Legal Sex Male 10:35 PM EDT Gender Identity Not on file Sexual Orientation Not on file documented as of this encounter Last Filed Vital Signs Vital Sign Reading Time Taken Comments Blood Pressure - - Pulse - - Temperature - - Respiratory Rate - - Oxygen Saturation - - Inhaled Oxygen Concentration - - Weight 74.8 kg (165 lb) 11/09/2021 7:47 PM EST Height 185.4 cm (6' 1 ) 11/09/2021 7:47 PM EST Body Mass Index 21.77 11/09/2021 7:47 PM EST documented in this encounter Plan of Treatment Not on file documented as of this encounter Visit Diagnoses Not on filedocumented in this encounter Care Teams Enrollment Services Dean Relationship Specialty Start Date End Date Radha Bonner MD [address] [place] [id number] PCP - General Internal Medicine 11/06/21 documented as of this encounter Additional Source Comments The information contained in this document represents components of the legal health record. It is not the complete legal health record.[facility]
--- OUTSIDE RECORDS SUMMARY | 2025-05-20 13:26 | XMS_ITS | Patient Health Record ---
Author Organization [facility] Address [address] [place] [address] Care Team Providers Care Cylinder Die Machine Helper Name Role Phone Radha Bonner MD Primary Care Provider Salas Morelos [phone] Allergies Allergen (clinical drug ingredient) Drug/Non Drug Allergy documented on EMR Reaction Allergy Type Onset Date Status hydrocortisone Cortizone-10 Unknown Drug Allergy Active Reason For Referral No Information Medications Medication SIG (Take, Route, Frequency, Duration) Notes Start Date End Date Status Multivitamin Active Claritin Active Immunizations Vaccine Route Administration Date Status Comme nts Influenza Unknown 06/22/2020 Administered Social History Tobacco Use: Social History Observation Description Date Details (start date - stop date) Never Smoker NA - NA Tobacco Use/Smoking Question Answer Notes Patient is [...] drinks (0 point) Points 3 Interpretation Negative Section Notes: Nonsmoker; no sig alcohol Nonsmoker; no sig alcohol Problems Problem Type SNOMED Code ICD Code Onset Dates Problem Status W/U Status Risk Notes Problem Colon cancer screening (855899957) Colon cancer screening (Z12.11) Active confirmed Problem Screening for malignant neoplasm of colon (375269615) Encounter for screening for malignant neoplasm of colon (Z12.11) Active confirmed Problem History of adenomatous polyp of colon (780175380) History of adenomatous polyp of colon (Z86.010) Active confirmed Problem Diverticular disease of colon (630372380) Diverticulosis of large intestine without perforation or abscess without bleeding (K57.30) Active confirmed Problem Abnormal feces (728874435) Positive colorectal cancer screening using Cologuard test (R19.5) Active confirmed Problem Serrated polyp of colon (789045361) Serrated polyp of colon (K63.5) Active confirmed Problem Personal history of adenomatous and serrated colon polyps (Z86.0101) Active confirmed Vital Signs Blood pressure diastolic 00 mm Hg 06/29/2024 Height 73 in 06/29/2024 Blood pressure systolic 00 mm Hg 06/29/2024 Weight 171 lbs 06/29/2024 BMI 22.56 kg/m2 06/29/2024 Encounters Encounter Location Date Provider Diagnosis [facility] Outpatient [address] [place], [place] [id number] 10/20/2024 Salas Frederick Colon cancer screeni ng Z12.11 ; Personal history of colonic polyps Z86.0100 ; Diverticulosis of large intestine without perforation or abscess without bleeding K57.30 and Other hemorrhoids K64.8 [facility] [address] [place] [address] 06/29/2024 Salas Frederick Encounter for screen ing for malignant neoplasm of colon Z12.11 ; Serrated polyp of colon K63.5 ; History of adenomatous polyp of colon Z86.010 and Colon cancer screening Z12.11 Assessments Encounter Date Diagnosis (ICD Code) Assessment Notes Treatment Notes Treatment Clinical Notes Section Notes 10/20/2024 Colon cancer screening (ICD-10 - Z12.11) 10/20/2024 Personal history of colonic polyps (ICD-10 - Z86.0100) 06/29/2024 Encounter for screening for malignant neoplasm of colon (ICD-10 - Z12.11) Overall, David appears quite well. He is not having any new or worrisome GI complaints. We did review the findings on his most recent colonoscopy in November of 2020 in regard to the sessile serrated polyp that was removed. Based on that I would recommend a followup colonoscopy for further screening purposes. By the time the procedure is performed it will be just about 4 years since his last exam which I think is appropriate given the previous pathology of the sessile serrated polyp. We did review the rationale for this in regard to colon cancer prevention. Full consent was obtained for this, including risks of bleeding and perforation. The procedure will be done monitored anesthesia care. David and his were comfortable with this plan. Thank you again for allowing me to participate in David's care. I shall continue to keep you advised of his progress. 06/29/2024 Serrated polyp of colon (ICD-10 - K63.5) Overall, David appears quite well. He is not having any new or worrisome GI complaints. We did review the findings on his most recent colonoscopy in November of 2020 in regard to the sessile serrated polyp that was removed. Based on that I would recommend a followup colonoscopy for further screening purposes. By the time the procedure is performed it will be just about 4 years since his last exam which I think is appropriate given the previous pathology of the sessile serrated polyp. We did review the rationale for this in regard to colon cancer prevention. Full consent was obtained for this, including risks of bleeding and perforation. The procedure will be done monitored anesthesia care. David and his were comfortable with this plan. Thank you again for allowing me to participate in David's care. I shall continue to keep you advised of his progress. 10/20/2024 Diverticulosis of large intestine without perforation or abscess without bleeding (ICD-10 - K57.30) 06/29/2024 History of adenomatous polyp of colon (ICD-10 - Z86.010) Overall, David appears quite well. He is not having any new or worrisome GI complaints. We did review the findings on his most recent colonoscopy in November of 2020 in regard to the sessile serrated polyp that was removed. Based on that I would recommend a followup colonoscopy for further screening purposes. By the time the procedure is performed it will be just about 4 years since his last exam which I think is appropriate given the previous pathology of the sessile serrated polyp. We did review the rationale for this in regard to colon cancer prevention. Full consent was obtained for this, including risks of bleeding and perforation. The procedure will be done monitored anesthesia care. David and his were comfortable with this plan. Thank you again for allowing me to participate in David's care. I shall continue to keep you advised of his progress. 10/20/2024 Other hemorrhoids (ICD-10 - K64.8) 06/29/2024 Colon cancer screening (ICD-10 - Z12.11) Overall, David appears quite well. He is not having any new or worrisome GI complaints. We did review the findings on his most recent colonoscopy in November of 2020 in regard to the sessile serrated polyp that was removed. Based on that I would recommend a followup colonoscopy for further screening purposes. By the time the procedure is performed it will be just about 4 years since his last exam which I think is appropriate given the previous pathology of the sessile serrated polyp. We did review the rationale for this in regard to colon cancer prevention. Full consent was obtained for this, including risks of bleeding and perforation. The procedure will be done monitored anesthesia care. David and his were comfortable with this plan. Thank you again for allowing me to participate in David's care. I shall continue to keep you advised of his progress. Plan Of Treatment Future Test Test Name Order Date COLONOSCOPY 11/07/2020 COLONOSCOPY 06/29/2024 Insurance Providers Payer Name Payer Address Payer Phone Subscriber Number Group Number Insured Name Patient Relationship to Insured Coverage Start Date Coverage End Date MEDICARE OF [place] [address] [place] [address] [id number] GLORIAEYALNADEGE Hooks Self - patient is the insured [facility] [address] [place] [address] [id number] NADEGE ROJAS Self - patient is the insured Medical (General) History Medical History History ICD Code Denies NC,DM,CVA,Lung disease,renal dise ase Seasonal allergies Negative colonoscopy in 01/2010 Colonoscopy in November of 2020 revealed a small tubular adenoma and a sessile serrated polyp in the ascending colon, both of which were removed Surgical History Surgery Date(Month/Year) Tonsillectomy
--- OUTSIDE RECORDS SUMMARY | 2025-05-20 13:27 | XMS_ITS | Clinical Summary ---
Author Organization [facility] Address [address] [address] Phone Care Team Providers Care Camp Advisor Name Role Phone Radha Bonner MD Primary Care Provider [phone] Allergies Active Allergy Reactions Criticality Noted Date Comments Hydrocortisone 11/06/2021 Other reaction(s): Unknown Medications meclizine (ANTIVERT) 25 mg tablet 2 Active diclofenac sodium (VOLTAREN) 1 % Gel Apply 2 g topically 4 (four) times a day as needed (Pain). P4, K10 240 g 2 2 Active Social History Tobacco Use Types Packs/Day Years Used Date Smoking Tobacco: Never Smokeless Tobacco: Never Alcohol Use Standard Drinks/Week Comments Yes 2 (1 standard drink = 0.6 oz pur e alcohol) Education Answer Date Recorded Are you interested in more education? Not on tracey e 01/17/2023 Are you concerned about learning? Not on file 01/17/2023 No 01/17/2023 No 01/17/2023 Digital Access Answer Date Recorded No 02/15/2023 No 02/15/2023 No 02/15/2023 Reliable internet access at home? Not on file 02/15/2023 Device with a working camera? Not on file Sex and Gender Information Value Date Recorded Sex Assigned at Not on file Legal Sex Male 10:35 PM EDT Gender Identity Not on file Sexual Orientation Not on file Last Filed Vital Signs Vital Sign Reading Time Taken Comments Blood Pressure 132/84 08/04/2023 11:24 AM EST Pulse 80 08/04/2023 11:24 AM EST Temperature 36.2 C (97.1 F) 08/04/2023 11:24 AM EST Respiratory Rate 18 08/04/2023 11:24 AM EST Oxygen Saturation 97% 08/04/2023 11:24 AM EST Inhaled Oxygen Concentration - - Weight 74.8 kg (165 lb) 11/09/2021 7:47 PM EST Height 185.4 cm (6' 1 ) 11/09/2021 7:47 PM EST Body Mass Index 21.77 11/09/2021 7:47 PM EST Plan of Treatment Health Maintenance Due Date Last Done Comments LIPID PANEL 1959 DEPRESSION SCREENING 1971 HEPATITIS C SCREENING 1977 HIV ONE-TIME SCREENING (18-65 YEARS) 1977 COLOGUARD 2004 COLONOSCOPY 2004 COLORECTAL CANCER SCREENING 2004 FIT TEST 2004 FOBT 2004 SIGMOIDOSCOPY 2004 VIRTUAL COLONOSCOPY 2004 PNEUMOCOCCAL VACCINES (50+ years) (1 of 1 - PCV) 2009 COVID-19 VACCINE ( season) 2024 07/27/2023, 07/08/2022, 09/11/2021, Additional history exists Adult Td,Tdap Booster 05/27/2033 05/27/2023 RSV VACCINE (1 - 1-dose 75+ series) 2034 SMOKING STATUS SCREENING (Once After 26 Yrs) Completed 11/26/2021 ZOSTER VACCINES Completed 11/13/2022, 07/30/2022 HEPATITIS A VACCINES Aged Out No long er eligible based on patient's age to complete this topic HIB VACCINES Aged Out No longer eligi ble based on patient's age to complete this topic MENINGOCOCCAL VACCINES (ACWY) Aged Out No longer eligible based on patient's age to complete this topic MENINGOCOCCAL VACCINES (B) Aged Out N o longer eligible based on patient's age to complete this topic Medical Devices Not on file Insurance [employer] [employer] [facility] [address] [place] [address] [facility] Care Teams Camp Advisor Relationship Specialty Start Date End Date Radha Bonner MD [address] [place] [address] Drive [address] [place] [phone] PCP - General Internal Medicine 11/06/21 Additional Source Comments The information contained in this document represents components of the legal health record. It is not the complete legal health record.[facility]
== END 2025-05-20 14:18 | disposition home or self-care (01) ==
LOC: HO.HMCH 13:05
PROVIDERS: PCP Internal Medicine; Visit Provider Internal Medicine
DX: Z00.00 Encounter for general adult medical examination without abnormal findings (principal); R55 Syncope and collapse; M72.2 Plantar fascial fibromatosis

== ENCOUNTER → 2025-05-20 13:05 | Outpatient (BNVA) | payer BC, SELFPAY | PROVIDERS: PCP Internal Medicine; Visit Provider Internal Medicine | DX: Z00.00 Encounter for general adult medical examination without abnormal findings (principal); R55 Syncope and collapse; M72.2 Plantar fascial fibromatosis; R73.01 Impaired fasting glucose; E78.00 Pure hypercholesterolemia, unspecified; K64.9 Unspecified hemorrhoids; R30.0 Dysuria | CPT/HCPCS: 96127 ==

== ENCOUNTER 2025-05-21 07:54 | Outpatient (REF) | payer BC, MEDICARE, SELFPAY ==
--- OUTSIDE RECORDS SUMMARY | 2024-10-20 05:30 | XMS_ITS ---
Author Organization [facility] Address [address] [place] [address] Care Team Providers Care Women'S Garment Fitter Name Role Phone Po Radha LUTZ Primary Care Provider Salas Morelos Unavailable [phone] REASON FOR VISIT screening,hx polyps,serrated polyp colon Problems Problem Type SNOMED Code ICD Code Onset Dates Problem Status W/U Status Risk Notes Problem Diverticulosis o f large intestine without perforation or abscess without bleeding (K57.30) Active confirmed Encounters Encounter Location Date Provider Diagnosis [facility] [place] [address] [place] [phone] 10/20/2024 Salas Frederick Colon cancer scree luis Z12.11 ; Personal history of colonic polyps Z86.0100 ; Diverticulosis of large intestine without perforation or abscess without bleeding K57.30 and Other hemorrhoids K64.8 Assessments Encounter Date Diagnosis (ICD Code) Assessment Notes Treatment Notes Treatment Clinical Notes Section Notes 10/20/2024 Colon cancer screening (ICD-10 - Z12.11) 10/20/2024 Personal history of colonic polyps (ICD-10 - Z86.0100) 10/20/2024 Diverticulosis of large intestine without perforation or abscess without bleeding (ICD-10 - K57.30) 10/20/2024 Other hemorrhoids (ICD-10 - K64.8) Plan Of Treatment No Information Progress Notes * NADEGE ROJASDOB:[birth year] (64 yo M)Acc No.[id number]:10/20/2024 COLON WITH MAC Patient: NADEGE PERRY Provider: Stu Frederick MD :1960 A ge:64 Y S ex:Male Date:10/20/2024 Address:[address] [place], [place] [phone] Pcp:Radha Bonner MD Subjective: * Chief Complaints: * 1 . Screening,hx polyps,serrated polyp colon. * Medical History: Objective: * Vitals: Assessment: * Assessment: 1. C olon cancer screening - Z12.11 (Primary) 2 . P ersonal history of colonic polyps - Z86.0100 3 . D iverticulosis of large intestine without perforation or abscess without bleeding - K57.30 4 . O ther hemorrhoids - K64.8 ? Plan: * Treatment: * Procedure Codes: G 0105 COLOREC CANCR SCR; COLNSCPY HI RISK, 0529F INTRVL 3+YRS PTS CLNSCP DOCD, 0528F RCMND FLW-UP 10 YRS DOCD, Modifiers: 1P * * The named appointment provid er may or may not be the originator of this progress note, and it is not deemed complete until electronically signed by the appointment provider. Sign off status: Pending * Provider: Stu Frederick MD Date: 0 10/20/2024 Generated for Milo winston/Christine/Cristianitting on: 0 05/21/2025 07:57 AM EDT
--- OUTSIDE RECORDS SUMMARY | 2025-05-21 07:58 | XMS_ITS | Patient Health Record ---
Author Organization [facility] Address [address] [place] [address] Care Team Providers Care Biometrics Instructor Name Role Phone Radha Bonner MD Primary Care Provider Salas Morelos [phone] Allergies Allergen (clinical drug ingredient) Drug/Non Drug [...] Status Risk Notes Problem Colon cancer screening (535444919) Colon cancer screening (Z12.11) Active confirmed Problem Screening for malignant neoplasm of colon (963062950) Encounter for screening for malignant neoplasm of colon (Z12.11) Active confirmed Problem History of adenomatous polyp of colon (684078650) History of adenomatous polyp of colon (Z86.010) Active confirmed Problem Diverticular disease of colon (097352050) Diverticulosis of large intestine without perforation or abscess without bleeding (K57.30) Active confirmed Problem Abnormal feces (605096038) Positive colorectal cancer screening using Cologuard test (R19.5) Active confirmed Problem Serrated polyp of colon (504057379) Serrated polyp of colon (K63.5) Active confirmed Problem Personal history of adenomatous and serrated colon polyps (Z86.0101) Active confirmed Vital Signs Blood pressure diastolic 00 mm Hg 06/29/2024 Height 73 in 06/29/2024 Blood pressure systolic 00 mm Hg 06/29/2024 Weight 171 lbs 06/29/2024 BMI 22.56 kg/m2 06/29/2024 Encounters Encounter Location Date Provider Diagnosis [facility] Outpatient [address] [place], [place] [id number] 10/20/2024 Salas Frederick Colon cancer screeni ng Z12.11 ; Personal history of colonic polyps Z86.0100 ; Diverticulosis of large intestine without perforation or abscess without bleeding K57.30 and Other hemorrhoids K64.8 [facility] [address] [place] [address] 06/29/2024 Salas Frederick Encounter for screen ing [...] Date MEDICARE OF [place] [address] [place] [address] [id number] GLORIAEYALNADEGE Hooks Self - patient is the insured [facility] [address] [place] [address] [id number] NADEGE ROJAS Self - patient is the insured Medical (General) History Medical History History ICD Code Denies ND,DM,CVA,Lung disease,renal dise ase Seasonal allergies Negative colonoscopy in 01/2010 Colonoscopy in November of 2020 revealed a small tubular adenoma and a sessile serrated polyp in the ascending colon, both of which were removed Surgical History Surgery Date(Month/Year) Tonsillectomy
--- OUTSIDE RECORDS SUMMARY | 2025-05-21 07:58 | XMS_ITS | Clinical Summary ---
Author Organization [facility] Address [address] [address] Phone Care Team Providers Care Package Dyeing Machine Operator Name Role Phone Radha Bonner MD Primary Care Provider [phone] Allergies Active Allergy Reactions Criticality Noted Date [...] topic Medical Devices Not on file Insurance [employer] [employer] [facility] [place] [address] [facility] Care Teams Package Dyeing Machine Operator Relationship Specialty Start Date End Date Radha Bonner MD [address] [place] [address] Drive [address] [place] [phone] PCP - General Internal Medicine 11/06/21 Additional Source Comments The information contained in this document represents components of the legal health record. It is not the complete legal health record.[facility]
--- OUTSIDE RECORDS SUMMARY | 2025-05-21 07:58 | XMS_ITS | Encounter Summary ---
Author Organization [facility] Address [address] [facility] [address] [place] [address] Phone Care Team Providers Care Online Community Manager Name Role Phone Radha Bonner MD Primary Care Provider [phone] Encounter Details Date Type Department Care Team (Late st Contact Info) Description 11/06/2021 Procedure Pass [address] [place] [address] Social History Tobacco Use Types Packs/Day Years [...] on filedocumented in this encounter Care Teams Online Community Manager Relationship Specialty Start Date End Date Radha Bonner MD [address] [place] [phone] PCP - General Internal Medicine 11/06/21 documented as of this encounter Additional Source Comments The information contained in this document represents components of the legal health record. It is not the complete legal health record.[facility]
--- OUTSIDE RECORDS SUMMARY | 2025-05-21 07:58 | XMS_ITS | Patient Health Record ---
Author Organization [facility] Address [address] [place] [address] Care Team Providers Care Research Management Associate Name Role Phone Radha Bonner Primary Care Provider Julia Funez Unavailable [phone] Allergies Allergen (clinical drug ingredient) Drug/Non Drug [...] Insured Coverage Start Date Coverage End Date [facility] [address] [place] [address] [id number] Suraj Rojas Self - patient is the insured Medical (General) History Medical History History ICD Code Measles Mumps Chicken pox Surgical History Surgery Date(Month/Year) tonsillectomy
[2025-05-21 08:16] LABS: MANUAL DIFF FLAG NO
[2025-05-21 08:57] LABS: Hematocrit 44.7 % (42.0-52.0); Hemoglobin 15.4 g/dl (14.0-18.0); Imm Gran Abs Auto 0.01 X10*3/uL (0.00-0.03); Imm Gran Pct Auto 0.2 % (0.0-0.4); Lymphocytes Absolute Auto 1.4 X10*3/uL (1.2-4.9); Mean Corpuscular HGB Conc 34.5 g/dl (31.0-36.0); Mean Corpuscular Hemoglobin 30.3 pg (27.0-33.0); Mean Corpuscular Volume 87.8 fL (80.0-98.0); NRBC Abs Auto 0.000 X10*3/uL (0.0-0.012); NRBC Pct Auto 0.0 /100WBC (0.0-0.2); Platelet Count 182 X10*3/uL (160-400); Red Blood Count 5.09 X10*6/uL (4.60-5.80); White Blood Count 4.4 X10*3/uL (4.8-10.8)
[2025-05-21 09:45] LABS: Alanine Aminotransferase 14 U/L (0-40); Albumin Level 4.3 g/dL (3.5-5.0); Alkaline Phosphatase 69 U/L (39-117); Anion Gap 12 (12-20); Aspartate Amino Transferase 19 U/L (5-37); Blood Urea Nitrogen 16 mg/dL (9-16); Calcium 9.1 mg/dL (8.4-10.2); Carbon Dioxide 28 mmol/L (22-29); Chloride 105 mmol/L (96-108); Cholesterol 194 mg/dL (<200); Estimated Glomerular Filt Rate > 60; HDL Cholesterol 51 mg/dL (>40); Magnesium 2.2 mg/dL (1.6-2.6); Potassium 4.4 mmol/L (3.3-5.1); Sodium 141 mmol/L (135-145); Total Protein 7.1 g/dL (6.5-8.0); Triglycerides 74 mg/dL (<150)
[2025-05-21 10:02] LABS: Free T4 (Free Thyroxine) 1.00 ng/dL (0.71-1.85); Thyroid Stimulating Hormone 1.49 uIU/mL (0.32-4.0)
[2025-05-21 10:03] LABS: Folate 10.9 ng/mL (> or = 4.0); Vitamin B12 607 pg/mL (200-900)
[2025-05-21 10:12] LABS: Appearance Urine Clear; Glucose Urine UA Negative (Negative); PH 6.0 (5.0-9.0); Specific Gravity - Urine 1.020 (1.005-1.025)
== END 2025-05-21 07:55 | disposition home or self-care (01) ==
LOC: HO.LAB 07:54
PROVIDERS: PCP Internal Medicine; Visit Provider Internal Medicine
DX: R30.0 Dysuria (principal); E78.00 Pure hypercholesterolemia, unspecified; Z12.5 Encounter for screening for malignant neoplasm of prostate
CPT/HCPCS: 36415; 80053; 80061; 81003; 82607; 82746; 83735; 84153; 84439; 84443; 85025; 85652; 86140